=== PATIENT | female | born 1965 | race Caucasian/White ===

== ENCOUNTER 2018-08-07 17:53 | Inpatient (IN) | payer BC, OTHER ==
[2018-08-07] MEDS ORDERED: Alum Hydrox/Mag Hydrox/Simeth 30 ML, Lidocaine 2% 15 ML PO ONE ×2 (18:17)
[2018-08-07] MEDS ORDERED: fentaNYL 100 MCG/2 ML SDV IVPUSH ONE (18:17)
[2018-08-07] MEDS ORDERED: Nitroglycerin 0.4 MG Tab.SL SL PRN (18:17)
[2018-08-07] MEDS ORDERED: Sodium Chloride 0.9% 1,000 ML IV SCH ×2 (18:30→22:00)
--- NOTE | 2018-08-07 18:30 | EDM.PDOC ---
ED HPI GENERAL MEDICAL PROBLEM - General Chief Complaint: Chest Pain Stated Complaint: [facility] Time Seen by Provider: 08/07/18 18:04 Source of Information: Reports: Patient History Limitations: Reports: No Limitations - History of Present Illness INITIAL COMMENTS - FREE TEXT/NARRATIVE: Patient is a 52-year-old female presents ED complaining of left lateral chest pain that radiates into her jaw with some faint numbness and tingling to her fourth and fifth finger of the left hand. States this started yesterday upon awakening. Continued throughout the course the day on and off. Today at approximately 1500 hrs. the pain came back while sitting at her desk. Pain became quite severe in nature. She called her boyfriend and was transported her to the local EMS and thus transported here for further evaluation. She had taken two 325mg ASA tabs at approximately 1630. During transport patient received 10 mg of morphine, 4 mg Zofran, and 1 nitroglycerin with some relief. She has no prior history of pain as such. Currently pain to the jaw and chest is rated a 4 out of 10. She states she has been under a lot more stress with her health issues, family situation, and work. She does smoke approximately 1.5 packs per day. Alcohol use is seldom. No recreational drug use. She does carry a history of TIA in 2012. She has history of coronary disease, hypertension, hypercholesteremia, and diabetes. There are no first-degree relatives with heart disease. In addition she denies any fever, chills, abdominal pain, nausea vomiting, diaphoresis, pain to her back, dysuria, bloody stool, pain or swelling to her lower extremities. She has no history of blood clots to her legs or lungs. She has no history of cancer. Of note she is being further worked up for colon polyps that are abnormal. She has continued to lose weight and is excessively fatigued. She is scheduled to see a provider at the [facility] the end of August. Left Chest Pain Score (Numeric/FACES): 5 - Related Data Allergies Allergy/AdvReac Type Severity Reaction Status Date / Time No Known Allergies Allergy Verified 08/07/18 17:59 Home Meds: Home Meds . [No Known Home Meds] 08/07/18 [History] Past Medical History Gastrointestinal History: Reports: Colon Polyp [employer] WORK[employer] History: Reports: Other (See Below) Other [employer] WORKER History: LEEP Neurological History: Reports: TIA Psychiatric History: Reports: Anxiety, Depression - Past Surgical History GI Surgical History: Reports: Colonoscopy, EGD, Polypectomy Social & Family History - Tobacco Use Smoking Status *Q: Current Every Day Smoker Years of Tobacco use: 35 Packs/Tins Daily: 1.5 - Caffeine Use Caffeine Use: Reports: Coffee - Recreational Drug Use Recreational Drug Use: No ED ROS GENERAL - Review of Systems Review Of Systems: ROS reveals no pertinent complaints other than HPI. ED EXAM, GENERAL - Physical Exam Exam: See Below Exam Limited By: No Limitations General Appearance: Alert, WD/WN, No Apparent Distress Eye Exam: Bilateral Eye: Normal Inspection Ears: Hearing Grossly Normal Nose: Normal Inspection Throat/Mouth: Normal Inspection, Normal Oropharynx, Normal Voice, No Airway Compromise Head: Atraumatic, Normocephalic Neck: Normal Inspection, Supple, Non-Tender, Full Range of Motion. No: Lymphadenopathy (L), Lymphadenopathy (R) Respiratory/Chest: No Respiratory Distress, Lungs Clear, Normal Breath Sounds, No Accessory Muscle Use, Other (mild tenderness to the midclavicular line just above the nipple. No swelling, redness, bony abnormalities, rashes present.) Cardiovascular: Normal Peripheral Pulses, Regular Rate, Rhythm, No JVD, No Murmur, No Rub Peripheral Pulses: 2+: Radial (L), Radial (R) GI/Abdominal: Normal Bowel Sounds, Soft, Non-Tender, No Organomegaly, No Distention Back Exam: Normal Inspection Extremities: Normal Inspection, Normal Range of Motion, Non-Tender, No Pedal Edema, Normal Capillary Refill Neurological: Alert, Oriented, CN II-XII Intact, Normal Cognition, No Motor/ Sensory Deficits Psychiatric: Normal Affect, Normal Mood Skin Exam: Warm, Dry, Intact, Normal Color, No Rash Course - Vital Signs Last Recorded V/S: Last Vital Signs Temp 97.2 F 08/07/18 18:00 Pulse 60 08/07/18 18:00 Resp 20 08/07/18 18:00 BP 105/76 08/07/18 18:38 Pulse Ox 95 08/07/18 18:00 - Orders/Labs/Meds Orders: Active Orders 24 hr Category Date Time Status Patient Status [ADT] Routine ADT 08/07/18 22:19 Active EKG 12 Lead [EKG Documentation Completion] [RC] STAT Care 08/07/18 18:00 Active CXR [Chest 1V Frontal] [CR] Stat Exams 08/07/18 18:32 Taken CULTURE BLOOD [BC] Stat Lab 08/07/18 21:43 Received CULTURE BLOOD [BC] Stat Lab 08/07/18 21:53 Received LACTIC ACID [CHEM] Stat Lab 08/07/18 21:43 Received MYCOPLASMA PNEUMONIAE IGM AB [CHEM] Stat Lab 08/07/18 18:10 Received STREP PNEUMONIAE ANTIGEN [MREF] Stat Lab 08/07/18 21:29 Ordered UA W/MICROSCOPIC [URIN] Stat Lab 08/07/18 18:25 Ordered Levofloxacin/Dextrose 5%-Water [Levaquin in D5W 750 MG/ Med 08/07/18 21:29 Active 150 ML] 750 mg Premix Bag 1 bag IV ONETIME Nitroglycerin [Nitrostat] Med 08/07/18 18:17 Active 0.4 mg SL Q5M PRN Sodium Chloride 0.9% [Normal Saline] 1,000 ml Med 08/07/18 18:30 Active IV ASDIRECTED Sodium Chloride 0.9% [Normal Saline] 1,000 ml Med 08/07/18 22:00 Active IV ASDIRECTED Sodium Chloride 0.9% [Normal Saline] 100 ml Med 08/07/18 20:45 Active IV ASDIRECTED Sodium Chloride 0.9% [Saline Flush] Med 08/07/18 20:40 Active 10 ml FLUSH ONETIME PRN Blood Culture x2 Reflex Set [OM.PC] Stat Oth 08/07/18 21:26 Ordered Medication Orders Sodium Chloride (Normal Saline) 1,000 mls @ 150 mls/hr IV ASDIRECTED [facility] Last Admin: 08/07/18 18:28 Dose: 150 mls/hr Sodium Chloride (Normal Saline) 100 mls @ 80 mls/hr IV ASDIRECTED [facility] Last Admin: 08/07/18 20:58 Dose: 80 mls/hr Levofloxacin/Dextrose 750 mg/ (Premix) 150 mls @ 100 mls/hr IV ONETIME ONE Stop: 08/07/18 22:58 Last Admin: 08/07/18 21:36 Dose: 100 mls/hr Sodium Chloride (Normal Saline) 1,000 mls @ 150 mls/hr IV ASDIRECTED [facility] Nitroglycerin (Nitrostat) 0.4 mg SL Q5M PRN PRN Reason: Chest Pain Last Admin: 08/07/18 18:38 Dose: 0.4 mg Sodium Chloride (Saline Flush) 10 ml FLUSH ONETIME PRN PRN Reason: KEEP VEIN OPEN Last Admin: 08/07/18 20:58 Dose: 10 ml Labs: Laboratory Tests 08/07/18 08/07/18 08/07/18 Range/Units 18:10 18:10 18:10 WBC 12.99 H (3.98-10.04) K/mm3 RBC 4.62 (3.98-5.22) M/mm3 Hgb 15.2 (11.2-15.7) gm/L Hct 44.7 (34.1-44.9) % MCV 96.8 H (79.4-94.8) fl MCH 32.9 H (25.6-32.2) pg MCHC 34.0 (32.2-35.5) g/dl RDW Std Deviation 48.1 H (36.4-46.3) fL Plt Count 274 (182-369) K/mm3 MPV 10.5 (9.4-12.3) fl Neutrophils % (Manual) 72 H (40-60) % Band Neutrophils % 0 (0-10) % Lymphocytes % (Manual) 22 (20-40) % Atypical Lymphs % 0 % Monocytes % (Manual) 5 (2-10) % Eosinophils % (Manual) 0 L (0.7-5.8) % Basophils % (Manual) 1 (0.1-1.2) Platelet Estimate Adequate Plt Morphology Comment Normal RBC Morph Comment Normal PT (9.5-12.1) SECONDS INR APTT (24-31) SECONDS D-Dimer, Quantitative 0.89 H (0.19-0.50) mg/L Sodium 139 (136-145) mEq/L Potassium 4.1 (3.5-5.1) mEq/L Chloride 105 (98-107) mEq/L Carbon Dioxide 26 (21-32) mEq/L Anion Gap 12.1 (5-15) BUN 11 (7-18) mg/dL Creatinine 0.6 (0.55-1.02) mg/dL Est Cr Clr Drug Dosing 93.73 mL/min Estimated GFR (MDRD) > 60 (>60) mL/min BUN/Creatinine Ratio 18.3 H (14-18) Glucose 108 H (74-106) mg/dL Calcium 8.2 L (8.5-10.1) mg/dL Total Bilirubin 0.2 (0.2-1.0) mg/dL AST 14 L (15-37) U/L ALT 14 (14-59) U/L Alkaline Phosphatase 70 (46-116) U/L Troponin I < 0.017 (0.00-0.056) ng/mL C-Reactive Protein 0.5 (<1.0) mg/dL Total Protein 6.7 (6.4-8.2) g/dl Albumin 3.3 L (3.4-5.0) g/dl Globulin 3.4 gm/dL Albumin/Globulin Ratio 1.0 (1-2) Free T4 1.17 (0.76-1.46) ng/dL TSH 3rd Generation 2.368 (0.358-3.74) uIU/mL 08/07/18 08/07/18 08/07/18 Range/Units 18:10 19:43 21:25 WBC (3.98-10.04) K/mm3 RBC (3.98-5.22) M/mm3 Hgb (11.2-15.7) gm/L Hct (34.1-44.9) % MCV (79.4-94.8) fl MCH (25.6-32.2) pg MCHC (32.2-35.5) g/dl RDW Std Deviation (36.4-46.3) fL Plt Count (182-369) K/mm3 MPV (9.4-12.3) fl Neutrophils % (Manual) (40-60) % Band Neutrophils % (0-10) % Lymphocytes % (Manual) (20-40) % Atypical Lymphs % % Monocytes % (Manual) (2-10) % Eosinophils % (Manual) (0.7-5.8) % Basophils % (Manual) (0.1-1.2) Platelet Estimate Plt Morphology Comment RBC Morph Comment PT 10.0 (9.5-12.1) SECONDS INR < 0.93 APTT 29 (24-31) SECONDS D-Dimer, Quantitative (0.19-0.50) mg/L Sodium (136-145) mEq/L Potassium (3.5-5.1) mEq/L Chloride (98-107) mEq/L Carbon Dioxide (21-32) mEq/L Anion Gap (5-15) BUN (7-18) mg/dL Creatinine (0.55-1.02) mg/dL Est Cr Clr Drug Dosing mL/min Estimated GFR (MDRD) (>60) mL/min BUN/Creatinine Ratio (14-18) Glucose (74-106) mg/dL Calcium (8.5-10.1) mg/dL Total Bilirubin (0.2-1.0) mg/dL AST (15-37) U/L ALT (14-59) U/L Alkaline Phosphatase (46-116) U/L Troponin I < 0.017 < 0.017 (0.00-0.056) ng/mL C-Reactive Protein (<1.0) mg/dL Total Protein (6.4-8.2) g/dl Albumin (3.4-5.0) g/dl Globulin gm/dL Albumin/Globulin Ratio (1-2) Free T4 (0.76-1.46) ng/dL TSH 3rd Generation (0.358-3.74) uIU/mL Meds: Medications Generic Name Dose Route Start Last Admin Trade Name Freq PRN Reason Stop Dose Admin Sodium Chloride 1,000 mls @ 150 mls/hr 08/07/18 18:30 08/07/18 18:28 Normal Saline IV 150 mls/hr ASDIRECTED XOCHILT Administration Sodium Chloride 100 mls @ 80 mls/hr 08/07/18 20:45 08/07/18 20:58 Normal Saline IV 80 mls/hr ASDIRECTED XOCHILT Administration Levofloxacin/Dextrose 750 mg/ 150 mls @ 100 mls/hr 08/07/18 21:29 08/07/18 21 :36 Premix IV 08/07/18 22:58 100 mls/hr ONETIME ONE Administration Sodium Chloride 1,000 mls @ 150 mls/hr 08/07/18 22:00 Normal Saline IV ASDIRECTED XOCHILT Nitroglycerin 0.4 mg 08/07/18 18:17 08/07/18 18:38 Nitrostat SL 0.4 mg Q5M PRN Administration Chest Pain Sodium Chloride 10 ml 08/07/18 20:40 08/07/18 20:58 Saline Flush FLUSH 10 ml ONETIME PRN Administration KEEP VEIN OPEN Discontinued Medications Generic Name Dose Route Start Last Admin Trade Name Ortiz PRN Reason Stop Dose Admin Al Hydroxide/Mg Hydroxide 30 0 ml 08/07/18 18:17 08/07/18 18:27 ml/ Lidocaine HCl 15 ml PO 08/07/18 18:18 45 ml ONETIME ONE Administration Fentanyl 50 mcg 08/07/18 18:17 08/07/18 18:30 Sublimaze IVPUSH 08/07/18 18:18 50 mcg ONETIME ONE Administration Sodium Chloride 1,000 mls @ 999 mls/hr 08/07/18 21:45 Normal Saline IV 08/07/18 22:45 ONETIME ONE Iopamidol 100 ml 08/07/18 20:40 08/07/18 20:58 Isovue-370 (76%) IVPUSH 08/07/18 20:41 100 ml ONETIME ONE Administration - Re-Assessments/Exams Free Text/Narrative Re-Assessment/Exam: Pain is currently a 4 out of 10 sharp to the chest worse with palpation and taking a deep breath. Jaw pain as a dull ache. No pain radiates into her back or into her abdomen. No pain radiating into her arm. Differential diagnosis: myocardial infarction, spontaneous pneumothorax, PE, muscloskeletal pain, anxiety, and GERD. Initial labs and studies will include: CBC, chem 14, CRP, d-dimer, coag studies , TSH, troponin, UA, chest x-ray one view, and EKG. I will order a GI cocktail, nitroglycerin 3 sublingual with parameters, and fentanyl 50 g IV. EKG: Sinus rhythm rate of 55, RSR V1 and V2 normal variant, QT is minimally prolonged at [address] changes noted. Chest x-ray left-sided pleural effusion with no obvious focal consolidation. No pneumothorax present. No cardiomegaly. No widening mediastinum. Reviewed with Dr. Antonio. Final Interpretation is pending. Labs reviewed: CBC was essentially normal. Troponin normal. TSH normal. White blood cell count mildly elevated. Hemoglobin normal. Platelet count 274. D- dimer elevated 0.89. CTA of the chest has been ordered. 2034 reassessment, patient's vital signs are stable. She continues to have some mild discomfort to the left chest and into her neck and jaw. She states the pain in the jaw has radiated into her neck. She has some pain with swallowing. Pain with palpation of the neck along the trachea. No swelling to the posterior pharynx. No erythema. No tonsillar exudates. No uvular deviation. No voice change. Pain to the chest left lateral increased with palpation and taking deep breath. She did have some relief with taking the above therapies. 2nd Troponin was obtained to early in error. 2nd troponin has been ordered 3 hrs from original blood draw. 08/07/18 21:08 Per nursing staff patient got up and walked to the bathroom without oxygen. O2 sat 77% on room air. [address] Christine. She has agreed to admit the patient to observation with telemetry if no significant findings noted on CTA of the chest. Plan would be to obtain a stress test in the a.m. 2117 CTA Chest Impression: 1. Small to moderate size left-sided pleural effusion with parenchymal density within the left base raising the possibility of pneumonia. Groundglass appearance within the left upper lung adjacent to the major fissure possibly due to additional pneumonia. Please correlate if patient has infectious symptoms. 2. Mild right basilar atelectasis is seen. 3. Slightly prominent lymph node within the lateral AP window measuring 2.7 cm. this most likely is enlarged on previous inflammatory basis although follow- up chest CT recommended in 6 months which should include contrast. This follow- up study would occur in January,. 4. No findings of pulmonary embolism. Blood cultures, lactic acid, and Levaquin 750 mg IV ordered. 2124 Discussed results of CTA of the chest with Dr. Christine. Recommended transfer to [place] with no clear etiology to cause of the left-sided pleural effusion concerning for cancer with history of weight loss and fatigue. I have spoken with the patient and she requests transfer to [facility]. Spoke to [facility] one call and [facility] admission coordinator. Both hospitals do not have any openings for this type of patient. I have spoken with Dr. Christine and she has agreed to admit the patient to the ED. Patient agrees to be admitted to the hospital here in [place]. Departure - Departure Time of Disposition: 22:06 Disposition: Admitted As Inpatient 67 Condition: Fair Clinical Impression: Hypoxia, Pleural effusion Pneumonia Qualifiers: Pneumonia type: due to unspecified organism Laterality: left Lung location: unspecified part of lung Qualified Code(s): J18.9 - Pneumonia, unspecified organism - My Orders Last 24 Hours: My Active Orders 08/07/18 18:00 EKG 12 Lead [EKG Documentation Completion] [RC] STAT 08/07/18 18:10 MYCOPLASMA PNEUMONIAE IGM AB [CHEM] Stat 08/07/18 18:17 Nitroglycerin [Nitrostat] 0.4 mg SL Q5M PRN 08/07/18 18:25 UA W/MICROSCOPIC [URIN] Stat 08/07/18 18:30 Sodium Chloride 0.9% [Normal Saline] 1,000 ml IV ASDIRECTED 08/07/18 18:32 CXR [Chest 1V Frontal] [CR] Stat 08/07/18 20:40 Sodium Chloride 0.9% [Saline Flush] 10 ml FLUSH ONETIME PRN 08/07/18 20:45 Sodium Chloride 0.9% [Normal Saline] 100 ml IV ASDIRECTED 08/07/18 21:26 Blood Culture x2 Reflex Set [OM.PC] Stat 08/07/18 21:29 STREP PNEUMONIAE ANTIGEN [MREF] Stat Levofloxacin/Dextrose 5%-Water [Levaquin in D5W 750 MG/150 ML] 750 mg Premix Bag 1 bag IV ONETIME 08/07/18 21:43 CULTURE BLOOD [BC] Stat LACTIC ACID [CHEM] Stat 08/07/18 21:53 CULTURE BLOOD [BC] Stat 08/07/18 22:00 Sodium Chloride 0.9% [Normal Saline] 1,000 ml IV ASDIRECTED 08/07/18 22:19 Patient Status [ADT] Routine - Assessment/Plan Last 24 Hours: My Active Orders 08/07/18 18:00 EKG 12 Lead [EKG Documentation Completion] [RC] STAT 08/07/18 18:10 MYCOPLASMA PNEUMONIAE IGM AB [CHEM] Stat 08/07/18 18:17 Nitroglycerin [Nitrostat] 0.4 mg SL Q5M PRN 08/07/18 18:25 UA W/MICROSCOPIC [URIN] Stat 08/07/18 18:30 Sodium Chloride 0.9% [Normal Saline] 1,000 ml IV ASDIRECTED 08/07/18 18:32 CXR [Chest 1V Frontal] [CR] Stat 08/07/18 20:40 Sodium Chloride 0.9% [Saline Flush] 10 ml FLUSH ONETIME PRN 08/07/18 20:45 Sodium Chloride 0.9% [Normal Saline] 100 ml IV ASDIRECTED 08/07/18 21:26 Blood Culture x2 Reflex Set [OM.PC] Stat 08/07/18 21:29 STREP PNEUMONIAE ANTIGEN [MREF] Stat Levofloxacin/Dextrose 5%-Water [Levaquin in D5W 750 MG/150 ML] 750 mg Premix Bag 1 bag IV ONETIME 08/07/18 21:43 CULTURE BLOOD [BC] Stat LACTIC ACID [CHEM] Stat 08/07/18 21:53 CULTURE BLOOD [BC] Stat 08/07/18 22:00 Sodium Chloride 0.9% [Normal Saline] 1,000 ml IV ASDIRECTED 08/07/18 22:19 Patient Status [ADT] Routine
[2018-08-07] MEDS ORDERED: Sodium Chloride 0.9% 10 ML Syringe FLUSH PRN (20:40)
[2018-08-07] MEDS ORDERED: Iopamidol 755 Mg/ML 100 ML Bottle IVPUSH ONE (20:40)
[2018-08-07] MEDS ORDERED: Sodium Chloride 0.9% 100 ML IV SCH (20:45)
--- NOTE | 2018-08-07 21:21 | CT ---
CT chest Technique: Multiple axial sections through the chest were obtained. Study has been performed as a pulmonary angiogram protocol. Comparison: Prior chest x-ray performed earlier on the same day (6:50 PM). Findings: Pulmonary arteries are well-opacified. No filling defects are seen to indicate pulmonary embolism. Aorta shows no aneurysm. Soft tissue fullness is noted within the AP window believed to represent a mildly enlarged lymph node at 2.7 cm. No pericardial thickening is seen. Small to moderate size left-sided pleural effusion is noted. Patchy increased density within both lung bases. Right base findings may represent atelectasis and left lung findings may represent slight area of pneumonia if patient has infectious symptoms. Hazy groundglass appearance is noted within the left upper lung adjacent to the major fissure. Small portion of the visualized upper abdominal structures are unremarkable. Minimal coronary artery calcification is seen. No axillary adenopathy is seen. Impression: 1. Small to moderate size left-sided pleural effusion with parenchymal density within the left base raising the possibility of pneumonia. Groundglass appearance within the left upper lung adjacent to the major fissure possibly due to additional pneumonia. Please correlate if patient has infectious symptoms. 2. Mild right basilar atelectasis is seen. 3. Slightly prominent lymph node within the lateral AP window measuring 2.7 cm. this most likely is enlarged on previous inflammatory basis although follow-up chest CT recommended in 6 months which should include contrast. This follow-up study would occur in January,. 4. No findings of pulmonary embolism. Diagnostic code #9
[2018-08-07] MEDS ORDERED: Levofloxacin/Dextrose 5%-Water 750 MG in Premix Bag 1 BAG IV ONE (21:29)
[2018-08-07] MEDS ORDERED: Sodium Chloride 0.9% 1,000 ML IV ONE (21:45)
[2018-08-07] MEDS ORDERED: Albuterol 0.083% 2.5 MG/3 ML Neb Soln NEB PRN (23:51)
[2018-08-07] MEDS: Sodium Chloride 0.9% 1,000 ML IV SCH (23:52)
[2018-08-07] MEDS ORDERED: Acetaminophen 325 MG Tab PO PRN (23:53)
[2018-08-07] MEDS ORDERED: Temazepam 7.5 MG Cap PO PRN (23:56)
[2018-08-07] MEDS ORDERED: Benzonatate 100 MG Cap PO PRN (23:56)
[2018-08-07] MEDS ORDERED: guaiFENesin 600 MG Tab.ER PO PRN (23:57)
[2018-08-08] MEDS: Azithromycin 500 MG in Sodium Chloride 0.9% 250 ML IV SCH (00:44)
--- NOTE | 2018-08-08 06:04 | CR ---
Chest: Portable view of the chest was obtained. Comparison: No prior chest x-ray. Heart is slightly enlarged. Increased density within the left base most likely due to combination of pneumonia and small pleural effusion. Lungs otherwise are clear. Bony structures are grossly intact. Impression: 1. Probable left basilar pneumonia and small left pleural effusion. 2. Slightly enlarged heart. Diagnostic code #3
[2018-08-08] MEDS: Sodium Chloride 0.9% 1,000 ML IV SCH ×2 (06:19→15:11)
--- NOTE | 2018-08-08 06:37 | PCM.HP ---
H&P History of Present Illness - General Date of Service: 08/08/18 Admit Problem/Dx: Admission Diagnosis/Problem Admission Diagnosis/Problem Pneumonia Source of Information: Patient, Old Records, Provider, RN, RN Notes Reviewed History Limitations: Reports: No Limitations - History of Present Illness Initial Comments - Free Text/Narative: Amarilys Cabrales is a 52yo female who presented to ED yesterday evening with lateral chest pain that radiates into her jaw along with faint numbness and tingling in her fourth and fifth finger of her left hand. She reports it started on 08/06/18 when she woke up and continued throughout the day on and off. On 08/07/18 at approximately 1500 hrs. the pain came back when she was sitting at her desk and was quite severe in nature. She called her boyfriend about who brought her to the [facility] and she was transported to our emergency room. She had taken two 325 mg ASA tabs around 4:30 and received 4 mg of morphine, 4 mg Zofran, and 1 after glycerin spray with some relief enroute. No prior history of similar pain. In the ED she reported her jaw pain to be 4 out of 10. Reports she has been under a lot of stress with health issues, family situation, and work. She is a daily smoker of 1.5 packs per day and rarely uses alcohol. Denies recreational drug use. She reportedly had a prior TIA in 2012. No history of coronary artery disease, hypertension, hypercholesterolemia, and diabetes. No first-degree relatives with heart disease. Denies any fever, chills, abdominal pain, nausea, vomiting, diaphoresis, pain to her back, dysuria, bloody stool, pain or swelling in her lower extremities. No history of DVT or PE. No history of cancer. She reportedly has an abnormal colon polyps and has continued to lose weight and is excessively fatigued. She is scheduled to see a provider at [facility] near the end of August. In the ED temp was 97.2. Pulse 60. Respirations 20. Blood pressure 105/76. Pulse ox 95%. 30 mL slightly elevated at 12.99. Hemoglobin 15.2. Hematocrit 44.7. She is macrocytic. Pulses are good at 274,000. Neutrophils were elevated at 72%. There is no bandemia. D-dimer 0.89. Sodium is 139. Potassium 4.1. Chloride 105. Carbon dioxide 26. Anion gap 12.1. BUN is 11. Creatinine 0.6. EGFR greater than 60. Glucose 108. Calcium 8.2. Total bilirubin 0.2. AST is 14, ALT 14, alkaline phosphatase 70. Troponin is negative at less than 0.017 for 3 total lab draws. CRP is 0.5. Protein is 6.7. Albumin is 3.3. Free T4 is 1.17. TSH is 2.368. PT is 10. INR is less than 0.93. APTT is 29. She is given a GI cocktail and nitroglycerin and 50 g IV fentanyl. Twelve-lead EKG is obtained showing a rate of 55 bpm. RSR is noted in V1 and V2 normal variant. QT is minimally prolonged. No acute ST changes are noted. Chest x-ray is obtained and interpreted by Dr. Hale as 1. Probable left basilar pneumonia and small left pleural effusion. 2. Slightly enlarged heart." CTA of the chest is obtained and interpreted by Dr. Hale as 1. Small to moderate size left-sided pleural effusion with parenchymal density within the left base raising the possibility of pneumonia. Groundglass appearance of the left upper lung adjacent to the major fissure possibly due to additional pneumonia. Please correlate if patient has infectious symptoms. 2. Mild right basilar atelectasis seen. 3. Slightly prominent lymph node within the lateral AP window measuring 2.7 cm. This most likely is enlarged on previous inflammatory basis although follow-up chest CT recommended in 6 months which should include contrast. This follow-up study would occur in January 2019. 4. No findings of pulmonary embolism." Lactic acid is later obtained and found to be 0.7. UA is negative although trace lysed occult blood is noted. Levaquin 750 mg IV is initiated along with saline hospitalist services contacted for possible admission and it is recommended patient be transferred to [place]. Both [facility] and [facility] contacted and neither has bed availability. Patient will therefore be admitted here. She carries a history of TIA in 2012, anxiety, depression prior LEEP, GERD, recurrent PNA, recurrent bronchitis, multiple colon polyps, chronic diarrhea. She is a 1.5 pack a day daily smoker. She is a full code. She does not have a PCP. Left Chest Pain Score (Numeric/FACES): 5 - Related Data Allergies/Adverse Reactions: Allergies Allergy/AdvReac Type Severity Reaction Status Date / Time No Known Allergies Allergy Verified 08/07/18 22:53 Home Medications: Home Meds [facility] Multivitamin Packet 1 packet PO DAILY 08/07/18 [History] Potassium 1 tab PO DAILY 08/07/18 [History] Past Medical History HEENT History: Reports: Other (See Below) Other HEENT History: broken nose in college Cardiovascular History: Reports: None Respiratory History: Reports: Bronchitis, Recurrent, Pneumonia, Recurrent Gastrointestinal History: Reports: Chronic Diarrhea, Colon Polyp, GERD Genitourinary History: Reports: None 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: Reports: Other (See Below) Other OB/BYN History: LEEP Musculoskeletal History: Reports: Arthritis Neurological History: Reports: TIA Other Neuro History: TIA in 2012 Psychiatric History: Reports: Anxiety, Depression - Past Surgical History HEENT Surgical History: Reports: None Cardiovascular Surgical History: Reports: None Respiratory Surgical History: Reports: None GI Surgical History: Reports: Colonoscopy, EGD, Polypectomy Female Surgical History: Reports: LEEP Neurological Surgical History: Reports: None Musculoskeletal Surgical History: Reports: Carpal Tunnel Social & Family History - Family History Oncologic: Reports: Breast, Lung - Tobacco Use Smoking Status *Q: Current Every Day Smoker Years of Tobacco use: 35 Packs/Tins Daily: 1.5 Tobacco Use Comment: Patient states that she has tried multiple ways to quit but hasn't been able. - Caffeine Use Caffeine Use: Reports: Coffee - Recreational Drug Use Recreational Drug Use: No H&P Review of Systems - Review of Systems: Review Of Systems: See Below General: Reports: Malaise, Weakness, Fatigue, Weight Loss. Denies: Fever, Chills, Decreased Appetite HEENT: Reports: No Symptoms, Sore Throat. Denies: Headaches, Post Nasal Drip Pulmonary: Reports: Shortness of Breath, Pleuritic Chest Pain, Cough, Sputum. Denies: Wheezing, Hemoptysis Cardiovascular: Reports: Chest Pain, Dyspnea on Exertion. Denies: Palpitations , Edema, Lightheadedness, Blood Pressure Problem Gastrointestinal: Reports: Diarrhea (Chronic ). Denies: Abdominal Pain, Constipation, Nausea, Vomiting Genitourinary: Reports: No Symptoms. Denies: Dysuria, Frequency, Pain Musculoskeletal: Reports: No Symptoms Skin: Reports: No Symptoms Psychiatric: Reports: No Symptoms Neurological: Reports: No Symptoms Hematologic/Lymphatic: Reports: No Symptoms Immunologic: Reports: No Symptoms Exam - Exam Exam: See Below - Vital Signs Vital Signs: Last Vital Signs Temp 98.6 F 08/08/18 02:18 Pulse 87 08/08/18 02:18 Resp 16 08/08/18 02:18 BP 94/53 L 08/08/18 02:18 Pulse Ox 90 L 08/08/18 02:18 Weight: 134 lb 7 oz - Exam Quality Assessment: Supplemental Oxygen, DVT Prophylaxis General: Alert, Oriented, Cooperative. No: Mild Distress HEENT: Conjunctiva Clear, EACs Clear, EOMI, Hearing Intact, Mucosa Moist & [place] , Nares Patent, Normal Nasal Septum, Posterior Pharynx Clear Neck: Supple, Trachea Midline, Full Range of Motion. No: Lymphadenopathy Lungs: Clear to Auscultation, Normal Respiratory Effort, Decreased Breath Sounds Cardiovascular: Regular Rate, Regular Rhythm GI/Abdominal Exam: Normal Bowel Sounds, Soft, Non-Tender, No Distention, No Abnormal Bruit, No Mass (Female) Exam: Deferred Rectal (Female) Exam: Deferred Back Exam: Normal Inspection, Full Range of Motion Extremities: Normal Inspection, Normal Range of Motion, Non-Tender, No Pedal Edema, Normal Capillary Refill Peripheral Pulses: 2+: Radial (L), Radial (R), Dorsalis Pedis (L), Dorsalis Pedis (R) Skin: Warm, Dry, Intact Neurological: Cranial Nerves Intact (grossly ) Neuro Extensive - Mental Status: Alert, Oriented x3, Normal Mood/Affect, Normal Cognition - Patient Data Lab Results Last 24 hrs: Laboratory Results - last 24 hr 08/07/18 08/07/18 08/07/18 Range/Units 18:10 18:10 18:10 WBC 12.99 H (3.98-10.04) K/mm3 RBC 4.62 (3.98-5.22) M/mm3 Hgb 15.2 (11.2-15.7) gm/L Hct 44.7 (34.1-44.9) % MCV 96.8 H (79.4-94.8) fl MCH 32.9 H (25.6-32.2) pg MCHC 34.0 (32.2-35.5) g/dl RDW Std Deviation 48.1 H (36.4-46.3) fL Plt Count 274 (182-369) K/mm3 MPV 10.5 (9.4-12.3) fl Neutrophils % (Manual) 72 H (40-60) % Band Neutrophils % 0 (0-10) % Lymphocytes % (Manual) 22 (20-40) % Atypical Lymphs % 0 % Monocytes % (Manual) 5 (2-10) % Eosinophils % (Manual) 0 L (0.7-5.8) % Basophils % (Manual) 1 (0.1-1.2) Platelet Estimate Adequate Plt Morphology Comment Normal Poikilocytosis Anisocytosis RBC Morph Comment Normal PT (9.5-12.1) SECONDS INR APTT (24-31) SECONDS D-Dimer, Quantitative 0.89 H (0.19-0.50) mg/L Sodium 139 (136-145) mEq/L Potassium 4.1 (3.5-5.1) mEq/L Chloride 105 (98-107) mEq/L Carbon Dioxide 26 (21-32) mEq/L Anion Gap 12.1 (5-15) BUN 11 (7-18) mg/dL Creatinine 0.6 (0.55-1.02) mg/dL Est Cr Clr Drug Dosing 93.73 mL/min Estimated GFR (MDRD) > 60 (>60) mL/min BUN/Creatinine Ratio 18.3 H (14-18) Glucose 108 H (74-106) mg/dL Lactic Acid (0.4-2.0) mmol/L Calcium 8.2 L (8.5-10.1) mg/dL Magnesium (1.8-2.4) mg/dl Total Bilirubin 0.2 (0.2-1.0) mg/dL AST 14 L (15-37) U/L ALT 14 (14-59) U/L Alkaline Phosphatase 70 (46-116) U/L Troponin I < 0.017 (0.00-0.056) ng/mL C-Reactive Protein 0.5 (<1.0) mg/dL Total Protein 6.7 (6.4-8.2) g/dl Albumin 3.3 L (3.4-5.0) g/dl Globulin 3.4 gm/dL Albumin/Globulin Ratio 1.0 (1-2) Free T4 1.17 (0.76-1.46) ng/dL TSH 3rd Generation 2.368 (0.358-3.74) uIU/mL Urine Color (Yellow) Urine Appearance (Clear) Urine pH (5.0-8.0) Ur Specific [place] (1.005-1.030) Urine Protein (Negative) Urine Glucose (UA) (Negative) Urine Ketones (Negative) Urine Occult Blood (Negative) Urine Nitrite (Negative) Urine Bilirubin (Negative) Urine Urobilinogen (0.2-1.0) Ur Leukocyte Esterase (Negative) Urine RBC (0-5) /hpf Urine WBC (0-5) /hpf Ur Epithelial Cells (0-5) /hpf Urine Bacteria (FEW) /hpf Urine Mucus (FEW) /hpf Mycoplasma pneumon IgM (NEGATIVE) 08/07/18 08/07/18 08/07/18 Range/Units 18:10 18:10 19:43 WBC (3.98-10.04) K/mm3 RBC (3.98-5.22) M/mm3 Hgb (11.2-15.7) gm/L Hct (34.1-44.9) % MCV (79.4-94.8) fl MCH (25.6-32.2) pg MCHC (32.2-35.5) g/dl RDW Std Deviation (36.4-46.3) fL Plt Count (182-369) K/mm3 MPV (9.4-12.3) fl Neutrophils % (Manual) (40-60) % Band Neutrophils % (0-10) % Lymphocytes % (Manual) (20-40) % Atypical Lymphs % % Monocytes % (Manual) (2-10) % Eosinophils % (Manual) (0.7-5.8) % Basophils % (Manual) (0.1-1.2) Platelet Estimate Plt Morphology Comment Poikilocytosis Anisocytosis RBC Morph Comment PT 10.0 (9.5-12.1) SECONDS INR < 0.93 APTT 29 (24-31) SECONDS D-Dimer, Quantitative (0.19-0.50) mg/L Sodium (136-145) mEq/L Potassium (3.5-5.1) mEq/L Chloride (98-107) mEq/L Carbon Dioxide (21-32) mEq/L Anion Gap (5-15) BUN (7-18) mg/dL Creatinine (0.55-1.02) mg/dL Est Cr Clr Drug Dosing mL/min Estimated GFR (MDRD) (>60) mL/min BUN/Creatinine Ratio (14-18) Glucose (74-106) mg/dL Lactic Acid (0.4-2.0) mmol/L Calcium (8.5-10.1) mg/dL Magnesium (1.8-2.4) mg/dl Total Bilirubin (0.2-1.0) mg/dL AST (15-37) U/L ALT (14-59) U/L Alkaline Phosphatase (46-116) U/L Troponin I < 0.017 (0.00-0.056) ng/mL C-Reactive Protein (<1.0) mg/dL Total Protein (6.4-8.2) g/dl Albumin (3.4-5.0) g/dl Globulin gm/dL Albumin/Globulin Ratio (1-2) Free T4 (0.76-1.46) ng/dL TSH 3rd Generation (0.358-3.74) uIU/mL Urine Color (Yellow) Urine Appearance (Clear) Urine pH (5.0-8.0) Ur Specific [place] (1.005-1.030) Urine Protein (Negative) Urine Glucose (UA) (Negative) Urine Ketones (Negative) Urine Occult Blood (Negative) Urine Nitrite (Negative) Urine Bilirubin (Negative) Urine Urobilinogen (0.2-1.0) Ur Leukocyte Esterase (Negative) Urine RBC (0-5) /hpf Urine WBC (0-5) /hpf Ur Epithelial Cells (0-5) /hpf Urine Bacteria (FEW) /hpf Urine Mucus (FEW) /hpf Mycoplasma pneumon IgM Positive H (NEGATIVE) 08/07/18 08/07/18 08/07/18 Range/Units 21:25 21:43 23:00 WBC (3.98-10.04) K/mm3 RBC (3.98-5.22) M/mm3 Hgb (11.2-15.7) gm/L Hct (34.1-44.9) % MCV (79.4-94.8) fl MCH (25.6-32.2) pg MCHC (32.2-35.5) g/dl RDW Std Deviation (36.4-46.3) fL Plt Count (182-369) K/mm3 MPV (9.4-12.3) fl Neutrophils % (Manual) (40-60) % Band Neutrophils % (0-10) % Lymphocytes % (Manual) (20-40) % Atypical Lymphs % % Monocytes % (Manual) (2-10) % Eosinophils % (Manual) (0.7-5.8) % Basophils % (Manual) (0.1-1.2) Platelet Estimate Plt Morphology Comment Poikilocytosis Anisocytosis RBC Morph Comment PT (9.5-12.1) SECONDS INR APTT (24-31) SECONDS D-Dimer, Quantitative (0.19-0.50) mg/L Sodium (136-145) mEq/L Potassium (3.5-5.1) mEq/L Chloride (98-107) mEq/L Carbon Dioxide (21-32) mEq/L Anion Gap (5-15) BUN (7-18) mg/dL Creatinine (0.55-1.02) mg/dL Est Cr Clr Drug Dosing mL/min Estimated GFR (MDRD) (>60) mL/min BUN/Creatinine Ratio (14-18) Glucose (74-106) mg/dL Lactic Acid 0.7 (0.4-2.0) mmol/L Calcium (8.5-10.1) mg/dL Magnesium (1.8-2.4) mg/dl Total Bilirubin (0.2-1.0) mg/dL AST (15-37) U/L ALT (14-59) U/L Alkaline Phosphatase (46-116) U/L Troponin I < 0.017 (0.00-0.056) ng/mL C-Reactive Protein (<1.0) mg/dL Total Protein (6.4-8.2) g/dl Albumin (3.4-5.0) g/dl Globulin gm/dL Albumin/Globulin Ratio (1-2) Free T4 (0.76-1.46) ng/dL TSH 3rd Generation (0.358-3.74) uIU/mL Urine Color Yellow (Yellow) Urine Appearance Clear (Clear) Urine pH 7.0 (5.0-8.0) Ur Specific [place] 1.010 (1.005-1.030) Urine Protein Negative (Negative) Urine Glucose (UA) Negative (Negative) Urine Ketones Negative (Negative) Urine Occult Blood Trace-lysed H (Negative) Urine Nitrite Negative (Negative) Urine Bilirubin Negative (Negative) Urine Urobilinogen 0.2 (0.2-1.0) Ur Leukocyte Esterase Negative (Negative) Urine RBC 0-5 (0-5) /hpf Urine WBC 0-5 (0-5) /hpf Ur Epithelial Cells 0-5 (0-5) /hpf Urine Bacteria Rare (FEW) /hpf Urine Mucus Not seen (FEW) /hpf Mycoplasma pneumon IgM (NEGATIVE) 08/08/18 08/08/18 08/08/18 Range/Units 05:30 05:30 05:30 WBC 11.27 H (3.98-10.04) K/mm3 RBC 4.49 (3.98-5.22) M/mm3 Hgb 15.1 (11.2-15.7) gm/L Hct 43.6 (34.1-44.9) % MCV 97.1 H (79.4-94.8) fl MCH 33.6 H (25.6-32.2) pg MCHC 34.6 (32.2-35.5) g/dl RDW Std Deviation 49.0 H (36.4-46.3) fL Plt Count 241 (182-369) K/mm3 MPV 9.9 (9.4-12.3) fl Neutrophils % (Manual) 66 H (40-60) % Band Neutrophils % 0 (0-10) % Lymphocytes % (Manual) 28 (20-40) % Atypical Lymphs % 0 % Monocytes % (Manual) 6 (2-10) % Eosinophils % (Manual) 0 L (0.7-5.8) % Basophils % (Manual) 0 L (0.1-1.2) Platelet Estimate Adequate Plt Morphology Comment Poikilocytosis 1+ slight Anisocytosis 1+ slight RBC Morph Comment Not Reportable PT (9.5-12.1) SECONDS INR APTT (24-31) SECONDS D-Dimer, Quantitative (0.19-0.50) mg/L Sodium 141 (136-145) mEq/L Potassium 4.1 (3.5-5.1) mEq/L Chloride 108 H (98-107) mEq/L Carbon Dioxide 25 (21-32) mEq/L Anion Gap 12.1 (5-15) BUN 7 (7-18) mg/dL Creatinine 0.5 L (0.55-1.02) mg/dL Est Cr Clr Drug Dosing 128.14 mL/min Estimated GFR (MDRD) > 60 (>60) mL/min BUN/Creatinine Ratio 14.0 (14-18) Glucose 99 (74-106) mg/dL Lactic Acid 0.5 (0.4-2.0) mmol/L Calcium 8.1 L (8.5-10.1) mg/dL Magnesium 2.0 (1.8-2.4) mg/dl Total Bilirubin (0.2-1.0) mg/dL AST (15-37) U/L ALT (14-59) U/L Alkaline Phosphatase (46-116) U/L Troponin I (0.00-0.056) ng/mL C-Reactive Protein 3.6 H* (<1.0) mg/dL Total Protein (6.4-8.2) g/dl Albumin (3.4-5.0) g/dl Globulin gm/dL Albumin/Globulin Ratio (1-2) Free T4 (0.76-1.46) ng/dL TSH 3rd Generation (0.358-3.74) uIU/mL Urine Color (Yellow) Urine Appearance (Clear) Urine pH (5.0-8.0) Ur Specific [place] (1.005-1.030) Urine Protein (Negative) Urine Glucose (UA) (Negative) Urine Ketones (Negative) Urine Occult Blood (Negative) Urine Nitrite (Negative) Urine Bilirubin (Negative) Urine Urobilinogen (0.2-1.0) Ur Leukocyte Esterase (Negative) Urine RBC (0-5) /hpf Urine WBC (0-5) /hpf Ur Epithelial Cells (0-5) /hpf Urine Bacteria (FEW) /hpf Urine Mucus (FEW) /hpf Mycoplasma pneumon IgM (NEGATIVE) Result Diagrams: 08/08/18 05:30 08/08/18 05:30 Praveen Results Last 24 hrs: Microbiology 08/07/18 23:54 Influenza Type A Antigen Screen - Final Nasal, Unspecified NEGATIVE INFLUENZA A VIRUS AG Influenza Type B Antigen Screen - Final NEGATIVE INFLUENZA B VIRUS AG - Problem List (1) Mycoplasma pneumonia SNOMED Code(s): 12690669 ICD Code: J15.7 - PNEUMONIA DUE TO MYCOPLASMA PNEUMONIAE Status: Acute Priority: High Current Visit: Yes Qualifiers: Laterality: left Lung location: unspecified part of lung Qualified Code(s ): J15.7 - Pneumonia due to Mycoplasma pneumoniae (2) Hypoxia SNOMED Code(s): 806004871 ICD Code: R09.02 - HYPOXEMIA Status: Acute Priority: High Current Visit : Yes (3) Pleural effusion SNOMED Code(s): 02155800 ICD Code: J90 - PLEURAL EFFUSION, NOT ELSEWHERE CLASSIFIED Status: Acute Priority: Medium Current Visit: Yes (4) Pneumonia SNOMED Code(s): 539147276 ICD Code: J18.9 - PNEUMONIA, UNSPECIFIED ORGANISM Status: Acute Priority : High Current Visit: Yes Qualifiers: Pneumonia type: due to unspecified organism Laterality: left Lung location: unspecified part of lung Qualified Code(s): J18.9 - Pneumonia, unspecified organism (5) Elevated d-dimer SNOMED Code(s): 726700512 ICD Code: R79.89 - OTHER SPECIFIED ABNORMAL FINDINGS OF BLOOD CHEMISTRY Status: Acute Priority: High Current Visit: Yes (6) Chest pain SNOMED Code(s): 63147906 ICD Code: R07.9 - CHEST PAIN, UNSPECIFIED Status: Acute Priority: High Current Visit: Yes Qualifiers: Chest pain type: chest pain on breathing Qualified Code(s): R07.1 - Chest pain on breathing; R07.81 - Pleurodynia (7) Lymph node enlargement SNOMED Code(s): 83792473 ICD Code: R59.9 - ENLARGED LYMPH NODES, UNSPECIFIED Status: Acute Priority: Medium Current Visit: Yes Problem List Initiated/Reviewed/Updated: Yes Orders Last 24hrs: Active Orders 24 hr Category Date Time Status Patient Status [ADT] Routine ADT 08/07/18 22:19 Active Activity as Tolerated [RC] .Routine Care 08/07/18 23:55 Active Influenza Vaccine Charge [RC] .DISCHARGE Care 08/07/18 23:08 Active Oxygen Therapy [RC] ASDIRECTED Care 08/07/18 23:52 Active RT Aerosol Therapy [RC] ASDIRECTED Care 08/07/18 23:46 Active Heart Healthy Diet [DIET] Diet 08/08/18 Breakfast Active CULTURE BLOOD [BC] Stat Lab 08/07/18 21:43 Received CULTURE BLOOD [BC] Stat Lab 08/07/18 21:53 Received RESPIRATORY PANEL Routine Lab 08/07/18 23:50 Received STREP PNEUMONIAE ANTIGEN [MREF] Stat Lab 08/07/18 23:23 Received Acetaminophen [Tylenol] Med 08/07/18 23:53 Active 650 mg PO Q6H PRN Albuterol [Proventil Neb Soln] Med 08/07/18 23:51 Active 2.5 mg NEB Q4HRRT PRN Albuterol/Ipratropium [DuoNeb 3.0-0.5 MG/3 ML] Med 08/08/18 09:00 Active 3 ml NEB QID Azithromycin [Zithromax] 500 mg Med 08/08/18 00:00 Active Sodium Chloride 0.9% [Normal Saline] 250 ml IV Q24H Benzonatate [Tessalon Perles] Med 08/07/18 23:56 Active 100 mg PO TID PRN Enoxaparin [Lovenox] Med 08/08/18 09:00 Active 40 mg SUBCUT DAILY FLU Vacc [id number] 36MOS UP/PF [Fluzone Quad [id number] Med 08/08/18 10:00 Once Syringe] 60 mcg IM .ONCE ONE Nicotine [Habitrol] Med 08/08/18 09:00 Active 21 mg TRDERM DAILY Nitroglycerin [Nitrostat] Med 08/07/18 18:17 Active 0.4 mg SL Q5M PRN Sodium Chloride 0.9% [Normal Saline] 1,000 ml Med 08/07/18 23:45 Active IV ASDIRECTED Sodium Chloride 0.9% [Saline Flush] Med 08/07/18 20:40 Active 10 ml FLUSH ONETIME PRN Temazepam [Restoril] Med 08/07/18 23:56 Active 7.5 mg PO BEDTIME PRN guaiFENesin [Mucinex] Med 08/07/18 23:57 Active 600 mg PO Q12H PRN Blood Culture x2 Reflex Set [OM.PC] Stat Oth 08/07/18 21:26 Ordered Isolation [COMM] Routine Oth 08/07/18 23:45 Ordered Code Status [Resuscitation Status] Routine Resus Stat 08/07/18 23:57 Ordered Medication Orders Acetaminophen (Tylenol) 650 mg PO Q6H PRN PRN Reason: Pain/Fever Albuterol (Proventil Neb Soln) 2.5 mg NEB Q4HRRT PRN PRN Reason: Shortness of Breath Albuterol/Ipratropium (Duoneb 3.0-0.5 Mg/3 Ml) 3 ml NEB QID [facility] Benzonatate (Tessalon Perles) 100 mg PO TID PRN PRN Reason: Cough Enoxaparin Sodium (Lovenox) 40 mg SUBCUT DAILY [facility] Guaifenesin (Mucinex) 600 mg PO Q12H PRN PRN Reason: Cough Sodium Chloride (Normal Saline) 1,000 mls @ 125 mls/hr IV ASDIRECTED XOCHILT Last Admin: 08/08/18 06:19 Dose: 125 mls/hr Infusion: 08/08/18 06:19 Dose: 125 mls/hr Admin: 08/07/18 23:52 Dose: 125 mls/hr Azithromycin 500 mg/ Sodium (Chloride) 250 mls @ 250 mls/hr IV Q24H [facility] Last Admin: 08/08/18 00:44 Dose: 250 mls/hr Influenza Virus Vaccine (Fluzone Quad [id number] Syringe) 60 mcg IM .ONCE ONE Stop: 08/08/18 10:01 Nicotine (Habitrol) 21 mg TRDERM DAILY [facility] Nitroglycerin (Nitrostat) 0.4 mg SL Q5M PRN PRN Reason: Chest Pain Last Admin: 08/07/18 18:38 Dose: 0.4 mg Sodium Chloride (Saline Flush) 10 ml FLUSH ONETIME PRN PRN Reason: KEEP VEIN OPEN Last Admin: 08/07/18 20:58 Dose: 10 ml Temazepam (Restoril) 7.5 mg PO BEDTIME PRN PRN Reason: Insomnia Assessment/Plan Comment:: I/P: Acute: Mycoplasma PNA -Presented to ED with chest pain which has been ongoing for past few days -Noted low oxygen saturations in ED -CRX 08/07/17 in ED: Probable left basilar pneumonia and small left pleural effusion. Heart is slightly enlarged. -CTA 08/07/17 in ED: * 1.Small moderate size left-sided pleural effusion with parenchymal density with the left base raising the possibility of pneumonia. Groundglass appearance within the left upper lung adjacent to the major fissure possibly due to his additional pneumonia. Please correlate as patient has infectious symptoms. * 2. Mild right basilar atelectasis seen. * 3. Slightly prominent lymph node with the lateral AP window measuring 2.7 cm. This most likely isn't enlarged on previous inflammatory basis although follow-up CT recommended in 6 months which should include contrast. This follow -up study would occur in January,. * 4. No findings of pulmonary embolism. -Levaquin given in ED - Discontinue -WBC: 12.99-->11.27 -CRP: 0.5-->3.6 -Lactic acid: 0.7 -Blood cultures pending -O2 as needed -Consult RT -PRN and scheduled duonebs/albuterol -Guaifenesin PRN -IS/Acapella -Sputum culture ordered -Azithromycin 500mg Q24 -Tessalon Pearls PRN for cough -Strep pneumo and VRP pending -Negative influenza -Fluids as ordered -Ambulate Sore throat -Reports throat irritation for some time -Worsened by cough -No injection or exudate on exam -Cepacol lozenge PRN -Throat culture ordered Elevated D-Dimmer -D-dimmer 0.89 -CTA as above - Negative for PE -No further workup Chest pain -Reports chest pain radiating into jaw with numbness and tingling in 4th and 5th digit of left hand -Worse with palpitation, inspiration, and cough -Hx/o anxiety, HLD, -Likely 2/2 PNA as above -Nitroglycerine/ASA given in ED and by EMS -Troponins negative -12-lead EKG in ED: Sinus rhythm at 55 BPM, RSR in V1 and V2 normal variant, QT minimally prolonged, No acute ST changes -Lipid panel ordered -Continue to monitor Tobacco use disorder -Reports 1.5 ppd smoker -Cessation counseling -Nicotine patch Prominent lymph node -2.7 cm lymph node noted on CT as above -Thought by radiologist to be enlarged on previous inflammatory basis -Recommend follow-up CT with contrast in January, -Will require PCP to follow-up on Chronic: Recurrent PNA Recurrent bronchitis GERD Chronic Diarrhea Multiple Colon Polyps -> has appt. at [place] on 08/22/18 for this Arthritis TIA in 2012 Plan: Admit to floor on telemetry Home medications as ordered Routine AM labs Other orders as indicated above GI prophylaxis: Pepcid DVT/PE prophylaxis: Lovenox Obtain old records She is ambulatory so will hold off PT/OT for now Code status: Full code; PCP: None
[2018-08-08] MEDS ORDERED: Ondansetron 4 MG Tab.DIS PO PRN (07:20)
[2018-08-08] MEDS ORDERED: Ondansetron 4 MG/2 ML SDV IV PRN (07:20)
[2018-08-08] MEDS ORDERED: Polyethylene Glycol 3350 Powder 17 GM Packet PO PRN (07:20)
[2018-08-08] MEDS ORDERED: Docusate Sodium 100 MG Cap PO PRN (07:20)
[2018-08-08] MEDS ORDERED: Bisacodyl 5 MG Tab PO PRN (07:20)
[2018-08-08] MEDS ORDERED: hydrALAZINE 20 MG/ML SDV IVPUSH PRN (07:23)
[2018-08-08] MEDS ORDERED: Metoprolol Tartrate 5 MG/5 ML SDV IVPUSH PRN (07:23)
[2018-08-08] MEDS ORDERED: guaiFENesin/Dextromethorphan 100-10 MG/5 ML Soln 5 ML Cup PO PRN (07:35)
[2018-08-08] MEDS: Famotidine 20 MG Tab PO SCH ×2 (08:11→21:20)
[2018-08-08] MEDS: Nicotine 21 MG/24 Hr Patch TRDERM SCH (08:12)
[2018-08-08] MEDS: Enoxaparin 40 MG/0.4 ML Syringe SUBCUT SCH (08:15)
[2018-08-08] MEDS: Albuterol/Ipratropium 3.0-0.5 MG/3 ML Neb Soln NEB SCH ×4 (08:22→20:41)
[2018-08-08] MEDS: Benzocaine/Cetylpyridinium/Menthol Lozenge MUCMEM PRN ×2 (15:37→21:20)
[2018-08-09] MEDS: Benzocaine/Cetylpyridinium/Menthol Lozenge MUCMEM PRN ×2 (01:07→08:23)
[2018-08-09] MEDS: Sodium Chloride 0.9% 1,000 ML IV SCH (01:08)
[2018-08-09] MEDS: Azithromycin 500 MG in Sodium Chloride 0.9% 250 ML IV SCH ×2 (01:08→23:24)
[2018-08-09] MEDS: Albuterol/Ipratropium 3.0-0.5 MG/3 ML Neb Soln NEB SCH ×4 (06:38→20:01)
--- NOTE | 2018-08-09 07:04 | PCM.PN ---
- General Info Date of Service: 08/09/18 Admission Dx/Problem (Free Text): Admission Diagnosis/Problem Admission Diagnosis/Problem Pneumonia Subjective Update: In to see Amarilys. She is sitting up in bed. Clinically she looks very good today. Labs have improved. She is off of oxygen and her cough has improved. Her chest pain has improved greatly. No nursing or patient concerns. We discussed her bowel issues and it is ultimately decided that since she this has been ongoing and she is scheduled to see [facility] at the end of the month we will defer to them. Will discontinue fluids at completion of this IV bag. She was advised to ambulate more. Otherwise, continue current treatment plan. Functional Status: Reports: Pain Controlled, Tolerating Diet, Ambulating, Urinating, Incentive Spirometry, Other (acapella ). Denies: New Symptoms - Review of Systems General: Reports: No Symptoms. Denies: Fever, Weakness, Fatigue, Malaise, Chills HEENT: Reports: Sore Throat. Denies: Headaches, Sinus Congestion Pulmonary: Reports: Pleuritic Chest Pain (improved ), Cough (improved ), Sputum. Denies: Shortness of Breath, Wheezing Cardiovascular: Reports: No Symptoms. Denies: Palpitations, Dyspnea on Exertion , Edema, Lightheadedness Gastrointestinal: Reports: Decreased Appetite, Diarrhea (Chronic ). Denies: Abdominal Pain, Constipation, Difficulty Swallowing, Nausea, Vomiting Genitourinary: Reports: No Symptoms. Denies: Dysuria, Pain Musculoskeletal: Reports: No Symptoms Skin: Reports: No Symptoms Neurological: Reports: No Symptoms. Denies: Confusion, Numbness, Pre-Existing Deficit, Seizure, Tingling, Trouble Speaking, Difficulty Walking, Weakness, Gait Disturbance Psychiatric: Reports: No Symptoms - Patient Data Vitals - Most Recent: Last Vital Signs Temp 98.1 F 08/09/18 06:20 Pulse 77 08/09/18 06:20 Resp 18 08/09/18 06:20 BP 105/87 08/09/18 06:20 Pulse Ox 91 L 08/09/18 06:39 Weight - Most Recent: 134 lb I&O - Last 24 Hours: Intake & Output 08/08/18 08/09/18 08/09/18 22:59 06:59 14:59 Intake Total 1874 1925 Output Total 1400 800 Balance 474 1125 Lab Results Last 24 Hours: Laboratory Results - last 24 hr 08/07/18 08/09/18 Range/Units 23:50 06:13 WBC 8.97 (3.98-10.04) K/mm3 RBC 4.31 (3.98-5.22) M/mm3 Hgb 13.9 (11.2-15.7) gm/L Hct 42.0 (34.1-44.9) % MCV 97.4 H (79.4-94.8) fl MCH 32.3 H (25.6-32.2) pg MCHC 33.1 (32.2-35.5) g/dl RDW Std Deviation 49.1 H (36.4-46.3) fL Plt Count 242 (182-369) K/mm3 MPV 10.7 (9.4-12.3) fl Neut % (Auto) 60.1 (34.0-71.1) % Lymph % (Auto) 25.2 (19.3-51.7) % [place] % (Auto) 12.2 (4.7-12.5) % Eos % (Auto) 1.9 (0.7-5.8) Baso % (Auto) 0.4 (0.1-1.2) % Neut # (Auto) 5.39 (1.56-6.13) K/mm3 Lymph # (Auto) 2.26 (1.18-3.74) K/mm3 [place] # (Auto) 1.09 H (0.24-0.36) K/mm3 Eos # (Auto) 0.17 (0.04-0.36) K/mm3 Baso # (Auto) 0.04 (0.01-0.08) K/mm3 Adenovirus (PCR) Not detected (Not Detected) B. pertussis DNA (PCR) Not detected (Not Detected) B.parapertussis DNA PCR Not detected (Not Detected) C. pneumoniae DNA (PCR) Not detected (Not Detected) Coronavirus (PCR) Not detected (Not Detected) Human Metapneumovir PCR Not detected (Not Detected) Influenza A (RT-PCR) Not detected (Not Detected) Influenza B (RT-PCR) Not detected (Not Detected) M. pneumoniae (PCR) Not detected (Not Detected) Parainfluen 1,2,3,4 PCR Not detected (Not Detected) RSV (PCR) Not detected (Not Detected) Entero/Rhino (PCR) Not detected (Not Detected) Praveen Results Last 24 Hours: Microbiology 08/07/18 21:53 Aerobic Blood Culture - Preliminary Blood - Venous - Lab Draw NO GROWTH AFTER 1 DAY Anaerobic Blood Culture - Preliminary NO GROWTH AFTER 1 DAY 08/07/18 21:43 Aerobic Blood Culture - Preliminary Blood - Venous NO GROWTH AFTER 1 DAY Anaerobic Blood Culture - Preliminary NO GROWTH AFTER 1 DAY 08/07/18 23:23 Streptococcus pneumoniae Antigen (M - Final Urine 08/07/18 23:54 Influenza Type A Antigen Screen - Final Nasal, Unspecified NEGATIVE INFLUENZA A VIRUS AG Influenza Type B Antigen Screen - Final NEGATIVE INFLUENZA B VIRUS AG Med Orders - Current: Current Medications Acetaminophen (Tylenol) 650 mg PO Q6H PRN PRN Reason: Pain/Fever Albuterol (Proventil Neb Soln) 2.5 mg NEB Q4HRRT PRN PRN Reason: Shortness of Breath Albuterol/Ipratropium (Duoneb 3.0-0.5 Mg/3 Ml) 3 ml NEB QIDRT [facility] Last Admin: 08/09/18 06:38 Dose: 3 ml Benzocaine/Menthol (Cepacol Sore Throat) 1 lozenge MUCMEM Q2H PRN PRN Reason: Sore Throat Last Admin: 08/09/18 01:07 Dose: 1 lozenge Benzonatate (Tessalon Perles) 100 mg PO TID PRN PRN Reason: Cough Bisacodyl (Dulcolax) 5 mg PO DAILY PRN PRN Reason: Constipation Docusate Sodium (Colace) 100 mg PO BID PRN PRN Reason: Constipation Enoxaparin Sodium (Lovenox) 40 mg SUBCUT DAILY [facility] Last Admin: 08/08/18 08:15 Dose: 40 mg Famotidine (Pepcid) 20 mg PO BID [facility] Last Admin: 08/08/18 21:20 Dose: 20 mg Guaifenesin (Mucinex) 600 mg PO Q12H PRN PRN Reason: Cough Hydralazine HCl (Apresoline) 10 mg IVPUSH Q4H PRN PRN Reason: Hypertension Sodium Chloride (Normal Saline) 1,000 mls @ 125 mls/hr IV ASDIRECTED [facility] Last Admin: 08/09/18 01:08 Dose: 125 mls/hr Azithromycin 500 mg/ Sodium (Chloride) 250 mls @ 250 mls/hr IV Q24H [facility] Last Admin: 08/09/18 01:08 Dose: 250 mls/hr Metoprolol Tartrate (Lopressor) 5 mg IVPUSH Q4H PRN PRN Reason: Tachycardia Nicotine (Habitrol) 21 mg TRDERM DAILY [facility] Last Admin: 08/08/18 08:12 Dose: 21 mg Nitroglycerin (Nitrostat) 0.4 mg SL Q5M PRN PRN Reason: Chest Pain Last Admin: 08/07/18 18:38 Dose: 0.4 mg Ondansetron HCl (Zofran Odt) 4 mg PO Q6H PRN PRN Reason: nausea, able to take PO Ondansetron HCl (Zofran) 4 mg IV Q6H PRN PRN Reason: Nausea/Vomiting Polyethylene Glycol (Miralax) 17 gm PO DAILY PRN PRN Reason: Constipation Senna/Docusate Sodium (Senna Plus) 1 tab PO BID PRN PRN Reason: Constipation Sodium Chloride (Saline Flush) 10 ml FLUSH ONETIME PRN PRN Reason: KEEP VEIN OPEN Last Admin: 08/07/18 20:58 Dose: 10 ml Temazepam (Restoril) 7.5 mg PO BEDTIME PRN PRN Reason: Insomnia Discontinued Medications Albuterol/Ipratropium (Duoneb 3.0-0.5 Mg/3 Ml) 3 ml NEB QID [facility] Last Admin: 08/08/18 20:41 Dose: 3 ml Al Hydroxide/Mg Hydroxide 30 (ml/ Lidocaine HCl 15 ml) 0 ml PO ONETIME ONE Stop: 08/07/18 18:18 Last Admin: 08/07/18 18:27 Dose: 45 ml Fentanyl (Sublimaze) 50 mcg IVPUSH ONETIME ONE Stop: 08/07/18 18:18 Last Admin: 08/07/18 18:30 Dose: 50 mcg Guaifenesin/Phenylephrine HCl (Robitussin Dm) 10 ml PO Q4H PRN PRN Reason: Cough Sodium Chloride (Normal Saline) 1,000 mls @ 150 mls/hr IV ASDIRECTED [facility] Last Admin: 08/07/18 18:28 Dose: 150 mls/hr Sodium Chloride (Normal Saline) 100 mls @ 80 mls/hr IV ASDIRECTED [facility] Last Admin: 08/07/18 20:58 Dose: 80 mls/hr Levofloxacin/Dextrose 750 mg/ (Premix) 150 mls @ 100 mls/hr IV ONETIME ONE Stop: 08/07/18 22:58 Last Admin: 08/07/18 21:36 Dose: 100 mls/hr Sodium Chloride (Normal Saline) 1,000 mls @ 999 mls/hr IV ONETIME ONE Stop: 08/07/18 22:45 Last Admin: 08/07/18 23:25 Dose: Not Given Sodium Chloride (Normal Saline) 1,000 mls @ 150 mls/hr IV ASDIRECTED [facility] Influenza Virus Vaccine (Pharmacy To Dose - Influenza Vaccine) 1 each IM ONETIME ONE Stop: 08/07/18 23:09 Influenza Virus Vaccine (Fluzone Quad 6024-3245 Syringe) 60 mcg IM .ONCE ONE Stop: 08/08/18 10:01 Iopamidol (Isovue-370 (76%)) 100 ml IVPUSH ONETIME ONE Stop: 08/07/18 20:41 Last Admin: 08/07/18 20:58 Dose: 100 ml - Exam Quality Assessment: DVT Prophylaxis. No: Supplemental Oxygen General: Alert, Oriented, Cooperative, No Acute Distress HEENT: Pupils Equal, Pupils Reactive, EOMI, Mucous Membr. Moist/[place] Neck: Supple, Trachea Midline, No JVD Lungs: Clear to Auscultation, Normal Respiratory Effort, Decreased Breath Sounds Cardiovascular: Regular Rate, Regular Rhythm GI/Abdominal Exam: Normal Bowel Sounds, Soft, Non-Tender, No Distention, No Abnormal Bruit (Female) Exam: Deferred Back Exam: Normal Inspection, Full Range of Motion Extremities: Normal Inspection, Normal Range of Motion, Non-Tender, No Pedal Edema, Normal Capillary Refill Peripheral Pulses: 2+: Radial (L), Radial (R), Dorsalis Pedis (L), Dorsalis Pedis (R) Skin: Warm, Dry, Intact Neurological: No New Focal Deficit Psy/Mental Status: Alert, Normal Affect, Normal Mood - Problem List & Annotations (1) Mycoplasma pneumonia SNOMED Code(s): 35655841 Code(s): J15.7 - PNEUMONIA DUE TO MYCOPLASMA PNEUMONIAE Status: Acute Priority: High Current Visit: Yes Qualifiers: Laterality: left Lung location: unspecified part of lung Qualified Code(s ): J15.7 - Pneumonia due to Mycoplasma pneumoniae (2) Hypoxia SNOMED Code(s): 864311553 Code(s): R09.02 - HYPOXEMIA Status: Acute Priority: High Current Visit : Yes (3) Pleural effusion SNOMED Code(s): 73677609 Code(s): J90 - PLEURAL EFFUSION, NOT ELSEWHERE CLASSIFIED Status: Acute Priority: Medium Current Visit: Yes (4) Pneumonia SNOMED Code(s): 059257174 Code(s): J18.9 - PNEUMONIA, UNSPECIFIED ORGANISM Status: Acute Priority: High Current Visit: Yes Qualifiers: Pneumonia type: due to unspecified organism Laterality: left Lung location: unspecified part of lung Qualified Code(s): J18.9 - Pneumonia, unspecified organism (5) Elevated d-dimer SNOMED Code(s): 226529999 Code(s): R79.89 - OTHER SPECIFIED ABNORMAL FINDINGS OF BLOOD CHEMISTRY Status: Acute Priority: High Current Visit: Yes (6) Chest pain SNOMED Code(s): 07077986 Code(s): R07.9 - CHEST PAIN, UNSPECIFIED Status: Acute Priority: High Current Visit: Yes Qualifiers: Chest pain type: chest pain on breathing Qualified Code(s): R07.1 - Chest pain on breathing; R07.81 - Pleurodynia (7) Lymph node enlargement SNOMED Code(s): 82468802 Code(s): R59.9 - ENLARGED LYMPH NODES, UNSPECIFIED Status: Acute Priority : Medium Current Visit: Yes - Problem List Review Problem List Initiated/Reviewed/Updated: Yes - My Orders Last 24 Hours: My Active Orders 08/08/18 07:20 Height and Weight [RC] 0400 Intake and Output [RC] 0400,1600 Up With Assistance [RC] ASDIRECTED VTE/DVT Education [RC] DAILY Vital Signs [RC] Q4HR Consult to Spiritual Care [CONS] Routine Respiratory Care Assess and Treatment [CONS] Routine Bisacodyl [Dulcolax] 5 mg PO DAILY PRN Docusate Sodium [Colace] 100 mg PO BID PRN Docusate Sodium/Sennosides [Senna Plus] 1 tab PO BID PRN Ondansetron [Zofran ODT] 4 mg PO Q6H PRN Ondansetron [Zofran] 4 mg IV Q6H PRN Polyethylene Glycol 3350 [MiraLAX] 17 gm PO DAILY PRN 08/08/18 07:23 Acapella [RT Chest Physiotherapy] [RC] ASDIRECTED RT Incentive Spirometry [RC] ASDIRECTED Metoprolol Tartrate [Lopressor] 5 mg IVPUSH Q4H PRN hydrALAZINE [Apresoline] 10 mg IVPUSH Q4H PRN 08/08/18 09:00 Famotidine [Pepcid] 20 mg PO BID 08/08/18 09:11 Benzocaine/Cetylpyrd/Menthol [Cepacol Sore Throat] 1 lozenge MUCMEM Q2H PRN 08/08/18 09:13 Ambulate [RC] ASDIRECTED 08/08/18 16:15 CULTURE SPUTUM + SMEAR [RM] Routine 08/09/18 06:13 BASIC METABOLIC PANEL,BMP [CHEM] AM CRP [C-REACTIVE PROTEIN] [CHEM] AM LIPID PANEL [CHEM] Routine MAGNESIUM [CHEM] AM 08/09/18 06:30 CULTURE THROAT [RM] Routine 08/09/18 08:00 Chest 2V [CR] Routine 08/10/18 05:11 BASIC METABOLIC PANEL,BMP [CHEM] AM CBC WITH AUTO DIFF [HEME] AM CRP [C-REACTIVE PROTEIN] [CHEM] AM MAGNESIUM [CHEM] AM 08/11/18 05:11 BASIC METABOLIC PANEL,BMP [CHEM] AM CBC WITH AUTO DIFF [HEME] AM CRP [C-REACTIVE PROTEIN] [CHEM] AM MAGNESIUM [CHEM] AM 08/12/18 05:11 BASIC METABOLIC PANEL,BMP [CHEM] AM CBC WITH AUTO DIFF [HEME] AM CRP [C-REACTIVE PROTEIN] [CHEM] AM MAGNESIUM [CHEM] AM - Plan Plan:: I/P: Acute: Mycoplasma PNA, improving -Presented to ED with chest pain which has been ongoing for past few days -Noted low oxygen saturations in ED -CRX 08/07/17 in ED: Probable left basilar pneumonia and small left pleural effusion. Heart is slightly enlarged. -CTA 08/07/17 in ED: * 1.Small moderate size left-sided pleural effusion with parenchymal density with the left base raising the possibility of pneumonia. Groundglass appearance within the left upper lung adjacent to the major fissure possibly due to his additional pneumonia. Please correlate as patient has infectious symptoms. * 2. Mild right basilar atelectasis seen. * 3. Slightly prominent lymph node with the lateral AP window measuring 2.7 cm. This most likely isn't enlarged on previous inflammatory basis although follow-up CT recommended in 6 months which should include contrast. This follow -up study would occur in January,. * 4. No findings of pulmonary embolism. -Levaquin given in ED - Discontinue -WBC: 12.99-->11.27-->8.97 -CRP: 0.5-->3.6-->8.6 -Lactic acid: 0.7 -Blood cultures negative thus far -O2 as needed -> off O2 today -Consult RT -PRN and scheduled duonebs/albuterol -Guaifenesin PRN -IS/Acapella -Sputum culture ordered -Azithromycin 500mg Q24 -Tessalon Pearls PRN for cough -Strep pneumo and VRP negative -Negative influenza -Fluids as ordered -> discontinue today -Ambulate TID -Droplet Isolation Sore throat, improving -Reports throat irritation for some time -Worsened by cough -No injection or exudate on exam -Cepacol lozenge PRN -Throat culture ordered Chest wall pain, improved -Reports chest pain radiating into jaw with numbness and tingling in 4th and 5th digit of left hand -Worse with palpitation, inspiration, and cough -Hx/o anxiety, HLD -Likely 2/2 PNA as above (coughing) -Nitroglycerine/ASA given in ED and by EMS -Troponins negative -12-lead EKG in ED: Sinus rhythm at 55 BPM, RSR in V1 and V2 normal variant, QT minimally prolonged, No acute ST changes -Lipid panel: Triglycerides 44, total cholesterol 100, LDL 56, HDL 43 -Continue to monitor -TSH 2.368 and free T4 1.17 (both WNL) Tobacco use disorder -Reports 1.5 ppd smoker -Cessation counseling -Nicotine patch Prominent lymph node -2.7 cm lymph node noted on CT as above -Thought by radiologist to be enlarged on previous inflammatory basis -Recommend follow-up CT with contrast in January, -Will require PCP to follow-up on Inactive: Elevated D-Dimmer -D-dimmer 0.89 -CTA as above - Negative for PE -No further workup Chronic: Recurrent PNA Recurrent bronchitis GERD Chronic Diarrhea Multiple Colon Polyps -> has appt. at [place] on 08/22/18 for this Arthritis TIA in 2012 Plan: Admit to floor on telemetry Home medications as ordered Routine AM labs Other orders as indicated above GI prophylaxis: Pepcid DVT/PE prophylaxis: Lovenox Obtain old records She is ambulatory so will hold off PT/OT for now Code status: Full code; PCP: Mara Tripp NP
[2018-08-09] MEDS: Nicotine 21 MG/24 Hr Patch TRDERM SCH (08:18)
[2018-08-09] MEDS: Famotidine 20 MG Tab PO SCH ×2 (08:22→21:19)
[2018-08-09] MEDS: Enoxaparin 40 MG/0.4 ML Syringe SUBCUT SCH (08:22)
--- NOTE | 2018-08-09 10:11 | CR ---
Chest: Two views of the chest were obtained. Comparison: Previous chest x-ray of 08/07/[address] chest of 08/07/18. Small to moderate size left-sided pleural effusion is seen causing mild left basilar compressive atelectasis. Lungs otherwise are clear. Heart size does not appear enlarged. Upper mediastinum is within normal limits. Bony structures are unremarkable. Impression: 1. Left-sided pleural effusion similar to previous CT chest. Mild left basilar atelectasis likely on a compressive basis is seen. 2. Other portions of the two-view chest x-ray are unremarkable. Diagnostic code #3
[2018-08-09] MEDS: Saccharomyces Boulardii (Probiotic) 250 MG Cap PO SCH (21:19)
[2018-08-10] MEDS: Albuterol/Ipratropium 3.0-0.5 MG/3 ML Neb Soln NEB SCH ×2 (05:30→10:01)
--- NOTE | 2018-08-10 07:05 | PCM.DCSUM1 ---
Discharge Summary - Hospital Course HPI Initial Comments: Amarilys Cabrales is a 52yo female who presented to ED yesterday evening with lateral chest pain that radiates into her jaw along with faint numbness and tingling in her fourth and fifth finger of her left hand. She reports it started on 08/06/18 when she woke up and continued throughout the day on and off. On 08/07/18 at approximately 1500 hrs. the pain came back when she was sitting at her desk and was quite severe in nature. She called her boyfriend about who brought her to the [facility] and she was transported to our emergency room. She had taken two 325 mg ASA tabs around 4:30 and received 4 mg of morphine, 4 mg Zofran, and 1 after glycerin spray with some relief enroute. No prior history of similar pain. In the ED she reported her jaw pain to be 4 out of 10. Reports she has been under a lot of stress with health issues, family situation, and work. She is a daily smoker of 1.5 packs per day and rarely uses alcohol. Denies recreational drug use. She reportedly had a prior TIA in 2012. No history of coronary artery disease, hypertension, hypercholesterolemia, and diabetes. No first-degree relatives with heart disease. Denies any fever, chills, abdominal pain, nausea, vomiting, diaphoresis, pain to her back, dysuria, bloody stool, pain or swelling in her lower extremities. No history of DVT or PE. No history of cancer. She reportedly has an abnormal colon polyps and has continued to lose weight and is excessively fatigued. She is scheduled to see a provider at [facility] near the end of August. In the ED temp was 97.2. Pulse 60. Respirations 20. Blood pressure 105/76. Pulse ox 95%. 30 mL slightly elevated at 12.99. Hemoglobin 15.2. Hematocrit 44.7. She is macrocytic. Pulses are good at 274,000. Neutrophils were elevated at 72%. There is no bandemia. D-dimer 0.89. Sodium is 139. Potassium 4.1. Chloride 105. Carbon dioxide 26. Anion gap 12.1. BUN is 11. Creatinine 0.6. EGFR greater than 60. Glucose 108. Calcium 8.2. Total bilirubin 0.2. AST is 14, ALT 14, alkaline phosphatase 70. Troponin is negative at less than 0.017 for 3 total lab draws. CRP is 0.5. Protein is 6.7. Albumin is 3.3. Free T4 is 1.17. TSH is 2.368. PT is 10. INR is less than 0.93. APTT is 29. She is given a GI cocktail and nitroglycerin and 50 g IV fentanyl. Twelve-lead EKG is obtained showing a rate of 55 bpm. RSR is noted in V1 and V2 normal variant. QT is minimally prolonged. No acute ST changes are noted. Chest x-ray is obtained and interpreted by Dr. Hale as 1. Probable left basilar pneumonia and small left pleural effusion. 2. Slightly enlarged heart." CTA of the chest is obtained and interpreted by Dr. Hale as 1. Small to moderate size left-sided pleural effusion with parenchymal density within the left base raising the possibility of pneumonia. Groundglass appearance of the left upper lung adjacent to the major fissure possibly due to additional pneumonia. Please correlate if patient has infectious symptoms. 2. Mild right basilar atelectasis seen. 3. Slightly prominent lymph node within the lateral AP window measuring 2.7 cm. This most likely is enlarged on previous inflammatory basis although follow-up chest CT recommended in 6 months which should include contrast. This follow-up study would occur in January 2019. 4. No findings of pulmonary embolism." Lactic acid is later obtained and found to be 0.7. UA is negative although trace lysed occult blood is noted. Levaquin 750 mg IV is initiated along with saline hospitalist services contacted for possible admission and it is recommended patient be transferred to [facility]. Both [facility] and [facility] contacted and neither has bed availability. Patient will therefore be admitted here. She carries a history of TIA in 2012, anxiety, depression prior LEEP, GERD, recurrent PNA, recurrent bronchitis, multiple colon polyps, chronic diarrhea. She is a 1.5 pack a day daily smoker. She is a full code. She does not have a PCP. Diagnosis: Stroke: No - Discharge Data Discharge Date: 08/10/18 (Admit date: 08/07/18) Discharge Disposition: Home, Self-Care 01 Condition: Good - Discharge Diagnosis/Problem(s) (1) Mycoplasma pneumonia SNOMED Code(s): 22809154 ICD Code: J15.7 - PNEUMONIA DUE TO MYCOPLASMA PNEUMONIAE Status: Acute Priority: High Current Visit: Yes Qualifiers: Laterality: left Lung location: unspecified part of lung Qualified Code(s ): J15.7 - Pneumonia due to Mycoplasma pneumoniae (2) Hypoxia SNOMED Code(s): 342247307 ICD Code: R09.02 - HYPOXEMIA Status: Acute Priority: High Current Visit : Yes (3) Pleural effusion SNOMED Code(s): 15686765 ICD Code: J90 - PLEURAL EFFUSION, NOT ELSEWHERE CLASSIFIED Status: Resolved Priority: Medium Current Visit: Yes (4) Pneumonia SNOMED Code(s): 620663899 ICD Code: J18.9 - PNEUMONIA, UNSPECIFIED ORGANISM Status: Acute Priority : High Current Visit: Yes Qualifiers: Pneumonia type: due to Mycoplasma pneumoniae Laterality: left Lung location: unspecified part of lung Qualified Code(s): J15.7 - Pneumonia due to Mycoplasma pneumoniae (5) Elevated d-dimer SNOMED Code(s): 885991478 ICD Code: R79.89 - OTHER SPECIFIED ABNORMAL FINDINGS OF BLOOD CHEMISTRY Status: Acute Priority: High Current Visit: Yes (6) Chest pain SNOMED Code(s): 00612993 ICD Code: R07.9 - CHEST PAIN, UNSPECIFIED Status: Acute Priority: High Current Visit: Yes Qualifiers: Chest pain type: chest pain on breathing Qualified Code(s): R07.1 - Chest pain on breathing; R07.81 - Pleurodynia (7) Lymph node enlargement SNOMED Code(s): 43093312 ICD Code: R59.9 - ENLARGED LYMPH NODES, UNSPECIFIED Status: Acute Priority: Medium Current Visit: Yes - Patient Summary/Data Consults: Consultations 08/08/18 07:20 Consult to Spiritual Care [CONS] Routine Respiratory Care Assess and Treatment [CONS] Routine Labs Pending at D/C: Throat culture - preliminary from lab reports normal precious Recommended Follow-up Testing/Procedures: Follow-up with PCP within 7-10 days, sooner if needed. Follow-up with [facility] as scheduled Hospital Course: I/P: Acute: Mycoplasma PNA, improving -Presented to ED with chest pain which has been ongoing for past few days -Noted low oxygen saturations in ED -CRX 08/07/17 in ED: Probable left basilar pneumonia and small left pleural effusion. Heart is slightly enlarged. -CTA 1/7/18 in ED: * 1.Small moderate size left-sided pleural effusion with parenchymal density with the left base raising the possibility of pneumonia. Groundglass appearance within the left upper lung adjacent to the major fissure possibly due to his additional pneumonia. Please correlate as patient has infectious symptoms. * 2. Mild right basilar atelectasis seen. * 3. Slightly prominent lymph node with the lateral AP window measuring 2.7 cm. This most likely isn't enlarged on previous inflammatory basis although follow-up CT recommended in 6 months which should include contrast. This follow -up study would occur in January,. * 4. No findings of pulmonary embolism. -Levaquin given in ED - Discontinue -WBC: 12.99-->11.27-->8.97-->8.84 -CRP: 0.5-->3.6-->8.6-->4.8 -Lactic acid: 0.7 -Blood cultures negative thus far -O2 as needed -> off O2 yesterday -Consult RT -PRN and scheduled duonebs/albuterol -Guaifenesin PRN -IS/Acapella -Sputum culture ordered - preliminary shows normal precious -Azithromycin 500mg Q24 -Tessalon Pearls PRN for cough -Strep pneumo and VRP negative -Negative influenza -Fluids as ordered -> discontinue today -Ambulate TID -Droplet Isolation Sore throat, improving -Reports throat irritation for some time -Worsened by cough -No injection or exudate on exam -Cepacol lozenge PRN -Throat culture ordered Chest wall pain, improved -Reports chest pain radiating into jaw with numbness and tingling in 4th and 5th digit of left hand -Worse with palpitation, inspiration, and cough -Hx/o anxiety, HLD -Likely 2/2 PNA as above (coughing) -Nitroglycerine/ASA given in ED and by EMS -Troponins negative -12-lead EKG in ED: Sinus rhythm at 55 BPM, RSR in V1 and V2 normal variant, QT minimally prolonged, No acute ST changes -Lipid panel: Triglycerides 44, total cholesterol 100, LDL 56, HDL 43 -Continue to monitor -TSH 2.368 and free T4 1.17 (both WNL) Tobacco use disorder -Reports 1.5 ppd smoker -Cessation counseling -Nicotine patch Prominent lymph node -2.7 cm lymph node noted on CT as above -Thought by radiologist to be enlarged on previous inflammatory basis -Recommend follow-up CT with contrast in January, -Will require PCP to follow-up on Inactive: Elevated D-Dimmer -D-dimmer 0.89 -CTA as above - Negative for PE -No further workup Chronic: Recurrent PNA Recurrent bronchitis GERD Chronic Diarrhea Multiple Colon Polyps -> has appt. at [facility] on 08/22/18 for this Arthritis TIA in 2012 Plan: Admit to floor on telemetry Home medications as ordered Routine AM labs Other orders as indicated above GI prophylaxis: Pepcid DVT/PE prophylaxis: Lovenox Obtain old records She is ambulatory so will hold off PT/OT for now Code status: Full code; PCP: Mara Tripp NP Overall Amarilys did very well. She came into our ED with chest pain. Cardiac workup was negative and she was found to be positive for mycoplasma and had a cough. She was also hypoxic and required oxygen, which was rapidly weaned off with treatment. She was started on azithromycin and responded very well. She was utilizing IS and acapella and instructed to continue this until all symptoms resolve. She is a smoker and received a nicotine patch while here. She liked the patches we have an took a picture of the box and patch as she liked how well ours stuck to her. She has been attempting to quit for sometime and she should be followed by her PCP for this. D-dimer was elevated in the ED and CTA was obtained as above with no signs of PE. Chest wall pain improved as her cough improved. She received duonebs while here and will be discharged on a PRN albuterol inhaler. She was given 2 more days of 500mg azithromycin tablets daily. She had been receiving her antibiotic around midnight and will be instructed to take this at bedtime starting tonight (08/10/18). She had been receiving tessalon pearls and will be discharged with a PRN order for this. Labs all trended down and she has been ambulating without shortness of breath or difficulty. Sputum culture was negative and preliminary throat culture showed normal precious. We offered to further explore her chronic diarrhea and colon issues however she refused and reports an appointment for this on 08/22/18 at [facility]. She was encouraged to be sure she attends this appointment. She did have a prominent lymph node as above and a repeat CT was recommended in January of 2019. She should follow-up with her PCP for this. She was instructed to follow-up with her PCP within 7-10 days, sooner if needed and [facility] as scheduled prior. - Patient Instructions Diet: Regular Diet as Tolerated Activity: As Tolerated Showering/Bathing: May Shower Notify Provider of: Fever, Increased Pain, Nausea and/or Vomiting Other/Special Instructions: -Follow-up with PCP within 7-10 days of discharge, sooner if needed. -Take all of your antibiotic, even if your feel 100% better. -Continut to utilize your incentive spirometry (clear/blue device your inahle through) and acapella (green tube you blow through) until all sympomts resolve. -You were curious about or nicotine patches. They are made by [employer]. You took pictures of the box and the patch itself. -You were prescribed an inhaler. Take this as needed as directed. -We discussed your abdominal sympotms and you indicated that you did not want further workup here as you are going to [facility] for this issue. Make sure you attend that appointment. -Should symptoms return or worsen, contact PCP or return to the ED - Discharge Plan *PRESCRIPTION DRUG MONITORING PROGRAM REVIEWED*: No *COPY OF PRESCRIPTION DRUG MONITORING REPORT IN PATIENT CYNTHIA: No Prescriptions/Med Rec: Albuterol [Ventolin HFA] 8 gm IH TID PRN 10 Days #1 inhaler PRN Reason: Wheezing/Shortness of breath Azithromycin 500 mg PO BEDTIME #2 tablet Benzonatate [Tessalon Perle] 100 mg PO BID PRN #20 capsule PRN Reason: Cough Nicotine [Habitrol] 21 mg TRDERM DAILY #2 box Saccharomyces Boulardii [Florastor] 250 mg PO BID #20 cap Home Medications: Home Meds [facility] Multivitamin Packet 1 packet PO DAILY 08/07/18 [History] Potassium 1 tab PO DAILY 08/07/18 [History] Albuterol [Ventolin HFA] 8 gm IH TID PRN 10 Days #1 inhaler 08/10/18 [Rx] Azithromycin 500 mg PO BEDTIME #2 tablet 08/10/18 [Rx] Benzonatate [Tessalon Perle] 100 mg PO BID PRN #20 capsule 08/10/18 [Rx] Nicotine [Habitrol] 21 mg TRDERM DAILY #2 box 08/10/18 [Rx] Saccharomyces Olu [Florastor] 250 mg PO BID #20 cap 08/10/18 [Rx] Oxygen Therapy Mode: Room Air Patient Handouts: Chest Wall Pain, [id number], Community-Acquired Pneumonia, Adult, [id number] Forms: ED Department Discharge Referrals: Mara Tripp [employer] [Ordering Only Provider] - 08/14/18 11:30 am (please attend the scheduled follow up appointment as listed.) - Discharge Summary/Plan Comment DC Time >30 min.: No - General Info Date of Service: 08/10/18 Admission Dx/Problem (Free Text: Admission Diagnosis/Problem Admission Diagnosis/Problem Pneumonia Subjective Update: In to see Amarilys. She is sitting up in bed and reports she feels very good. We discussed her smoking status and she indicated she would like nicotine patches. These will be prescribed. She reports her SOB is gone. Clinically she looks good and labs show continued improvement. She will be discharged today. Functional Status: Reports: Pain Controlled, Tolerating Diet, Ambulating, Urinating, Incentive Spirometry, Other (acapella ). Denies: New Symptoms - Review of Systems General: Reports: No Symptoms. Denies: Fever, Weakness, Fatigue, Malaise, Chills HEENT: Reports: No Symptoms, Sore Throat (improving ). Denies: Headaches, Sinus Congestion Pulmonary: Reports: Pleuritic Chest Pain (improving ), Cough (improving ), Sputum (improving ). Denies: Shortness of Breath, Wheezing Cardiovascular: Reports: No Symptoms. Denies: Palpitations, Dyspnea on Exertion , Edema, Lightheadedness Gastrointestinal: Reports: Decreased Appetite, Diarrhea (chronic ). Denies: Abdominal Pain, Constipation, Difficulty Swallowing, Nausea, Vomiting Genitourinary: Reports: No Symptoms. Denies: Pain Musculoskeletal: Reports: No Symptoms Skin: Reports: No Symptoms. Denies: Cyanosis Neurological: Reports: No Symptoms. Denies: Confusion, Headache, Numbness, Pre- Existing Deficit, Tingling, Trouble Speaking, Difficulty Walking, Weakness, Gait Disturbance Psychiatric: Reports: No Symptoms - Patient Data Vitals - Most Recent: Last Vital Signs Temp 98.1 F 08/09/18 23:28 Pulse 62 08/09/18 23:28 Resp 16 08/09/18 23:28 BP 107/61 08/09/18 23:28 Pulse Ox 92 L 08/10/18 05:33 Weight - Most Recent: 134 lb 1.6 oz I&O - Last 24 hours: Intake & Output 08/09/18 08/10/18 08/10/18 22:59 06:59 14:59 Intake Total 2330 1050 Output Total 300 800 Balance 2030 250 Lab Results - Last 24 hrs: Laboratory Results - last 24 hr 08/09/18 08/10/18 Range/Units 06:13 05:55 WBC 8.84 (3.98-10.04) K/mm3 RBC 4.57 (3.98-5.22) M/mm3 Hgb 15.0 (11.2-15.7) gm/L Hct 44.3 (34.1-44.9) % MCV 96.9 H (79.4-94.8) fl MCH 32.8 H (25.6-32.2) pg MCHC 33.9 (32.2-35.5) g/dl RDW Std Deviation 48.9 H (36.4-46.3) fL Plt Count 256 (182-369) K/mm3 MPV 10.4 (9.4-12.3) fl Neut % (Auto) 60.1 (34.0-71.1) % Lymph % (Auto) 26.6 (19.3-51.7) % [place] % (Auto) 10.2 (4.7-12.5) % Eos % (Auto) 2.4 (0.7-5.8) Baso % (Auto) 0.5 (0.1-1.2) % Neut # (Auto) 5.32 (1.56-6.13) K/mm3 Lymph # (Auto) 2.35 (1.18-3.74) K/mm3 [place] # (Auto) 0.90 H (0.24-0.36) K/mm3 Eos # (Auto) 0.21 (0.04-0.36) K/mm3 Baso # (Auto) 0.04 (0.01-0.08) K/mm3 Sodium 143 (136-145) mEq/L Potassium 3.9 (3.5-5.1) mEq/L Chloride 111 H (98-107) mEq/L Carbon Dioxide 25 (21-32) mEq/L Anion Gap 10.9 (5-15) BUN 9 (7-18) mg/dL Creatinine 0.5 L (0.55-1.02) mg/dL Est Cr Clr Drug Dosing 127.73 mL/min Estimated GFR (MDRD) > 60 (>60) mL/min BUN/Creatinine Ratio 18.0 (14-18) Glucose 89 (74-106) mg/dL Calcium 8.0 L (8.5-10.1) mg/dL Magnesium 2.0 (1.8-2.4) mg/dl C-Reactive Protein 8.6 H* (<1.0) mg/dL Triglycerides 44 (<150) mg/dL Cholesterol 100 (<200) mg/dL LDL Cholesterol Direct 56 (<100) mg/dL HDL Cholesterol 43.0 (40-59) mg/dL HARRISON Results - Last 24 hrs: Microbiology 08/07/18 21:53 Aerobic Blood Culture - Preliminary Blood - Venous - Lab Draw NO GROWTH AFTER 2 DAYS Anaerobic Blood Culture - Preliminary NO GROWTH AFTER 2 DAYS 08/07/18 21:43 Aerobic Blood Culture - Preliminary Blood - Venous NO GROWTH AFTER 2 DAYS Anaerobic Blood Culture - Preliminary NO GROWTH AFTER 2 DAYS 08/08/18 16:15 Gram Stain - Final Sputum - Expectorated Med Orders - Current: Current Medications Acetaminophen (Tylenol) 650 mg PO Q6H PRN PRN Reason: Pain/Fever Albuterol (Proventil Neb Soln) 2.5 mg NEB Q4HRRT PRN PRN Reason: Shortness of Breath Albuterol/Ipratropium (Duoneb 3.0-0.5 Mg/3 Ml) 3 ml NEB QIDRT XOCHILT Last Admin: 08/10/18 05:30 Dose: 3 ml Benzocaine/Menthol (Cepacol Sore Throat) 1 lozenge MUCMEM Q2H PRN PRN Reason: Sore Throat Last Admin: 08/09/18 08:23 Dose: 1 lozenge Benzonatate (Tessalon Perles) 100 mg PO TID PRN PRN Reason: Cough Last Admin: 08/09/18 09:01 Dose: 100 mg Bisacodyl (Dulcolax) 5 mg PO DAILY PRN PRN Reason: Constipation Docusate Sodium (Colace) 100 mg PO BID PRN PRN Reason: Constipation Enoxaparin Sodium (Lovenox) 40 mg SUBCUT DAILY [facility] Last Admin: 08/09/18 08:22 Dose: 40 mg Famotidine (Pepcid) 20 mg PO BID [facility] Last Admin: 08/09/18 21:19 Dose: 20 mg Guaifenesin (Mucinex) 600 mg PO Q12H PRN PRN Reason: Cough Last Admin: 08/09/18 09:01 Dose: 600 mg Hydralazine HCl (Apresoline) 10 mg IVPUSH Q4H PRN PRN Reason: Hypertension Azithromycin 500 mg/ Sodium (Chloride) 250 mls @ 250 mls/hr IV Q24H [facility] Last Admin: 08/09/18 23:24 Dose: 250 mls/hr Magnesium Sulfate (Pharmacy To Dose - Magnesium Replacement) 0 dose .XX ASDIRECTED PRN PRN Reason: RX TO WATCH MAG LEVELS Metoprolol Tartrate (Lopressor) 5 mg IVPUSH Q4H PRN PRN Reason: Tachycardia Nicotine (Habitrol) 21 mg TRDERM DAILY [facility] Last Admin: 08/09/18 08:18 Dose: 21 mg Nitroglycerin (Nitrostat) 0.4 mg SL Q5M PRN PRN Reason: Chest Pain Last Admin: 08/07/18 18:38 Dose: 0.4 mg Ondansetron HCl (Zofran Odt) 4 mg PO Q6H PRN PRN Reason: nausea, able to take PO Ondansetron HCl (Zofran) 4 mg IV Q6H PRN PRN Reason: Nausea/Vomiting Polyethylene Glycol (Miralax) 17 gm PO DAILY PRN PRN Reason: Constipation Potassium Chloride (Pharmacy To Dose - Potassium Replacement) 0 dose .XX ASDIRECTED PRN PRN Reason: RX TO WATCH K LEVELS Saccharomyces Boulardii (Florastor) 250 mg PO BID [facility] Last Admin: 08/09/18 21:19 Dose: 250 mg Senna/Docusate Sodium (Senna Plus) 1 tab PO BID PRN PRN Reason: Constipation Sodium Chloride (Saline Flush) 10 ml FLUSH ONETIME PRN PRN Reason: KEEP VEIN OPEN Last Admin: 08/07/18 20:58 Dose: 10 ml Temazepam (Restoril) 7.5 mg PO BEDTIME PRN PRN Reason: Insomnia Discontinued Medications Albuterol/Ipratropium (Duoneb 3.0-0.5 Mg/3 Ml) 3 ml NEB QID [facility] Last Admin: 08/08/18 20:41 Dose: 3 ml Al Hydroxide/Mg Hydroxide 30 (ml/ Lidocaine HCl 15 ml) 0 ml PO ONETIME ONE Stop: 08/07/18 18:18 Last Admin: 08/07/18 18:27 Dose: 45 ml Fentanyl (Sublimaze) 50 mcg IVPUSH ONETIME ONE Stop: 08/07/18 18:18 Last Admin: 08/07/18 18:30 Dose: 50 mcg Guaifenesin/Phenylephrine HCl (Robitussin Dm) 10 ml PO Q4H PRN PRN Reason: Cough Sodium Chloride (Normal Saline) 1,000 mls @ 150 mls/hr IV ASDIRECTED [facility] Last Admin: 08/07/18 18:28 Dose: 150 mls/hr Sodium Chloride (Normal Saline) 100 mls @ 80 mls/hr IV ASDIRECTED [facility] Last Admin: 08/07/18 20:58 Dose: 80 mls/hr Levofloxacin/Dextrose 750 mg/ (Premix) 150 mls @ 100 mls/hr IV ONETIME ONE Stop: 08/07/18 22:58 Last Admin: 08/07/18 21:36 Dose: 100 mls/hr Sodium Chloride (Normal Saline) 1,000 mls @ 999 mls/hr IV ONETIME ONE Stop: 08/07/18 22:45 Last Admin: 08/07/18 23:25 Dose: Not Given Sodium Chloride (Normal Saline) 1,000 mls @ 150 mls/hr IV ASDIRECTED [facility] Sodium Chloride (Normal Saline) 1,000 mls @ 125 mls/hr IV ASDIRECTED [facility] Last Admin: 08/09/18 01:08 Dose: 125 mls/hr Influenza Virus Vaccine (Pharmacy To Dose - Influenza Vaccine) 1 each IM ONETIME ONE Stop: 08/07/18 23:09 Influenza Virus Vaccine (Fluzone Quad [id number] Syringe) 60 mcg IM .ONCE ONE Stop: 08/08/18 10:01 Iopamidol (Isovue-370 (76%)) 100 ml IVPUSH ONETIME ONE Stop: 08/07/18 20:41 Last Admin: 08/07/18 20:58 Dose: 100 ml - Exam Quality Assessment: Reports: DVT Prophylaxis General: Reports: Alert, Oriented, Cooperative, No Acute Distress HEENT: Reports: Pupils Equal, Pupils Reactive, EOMI, Mucous Membr. Moist/[place] Neck: Reports: Supple, Trachea Midline, No JVD Lungs: Reports: Clear to Auscultation, Normal Respiratory Effort Cardiovascular: Reports: Regular Rate, Regular Rhythm GI/Abdominal Exam: Normal Bowel Sounds, Soft, Non-Tender, No Distention, No Abnormal Bruit (Female) Exam: Deferred Rectal (Female) Exam: Deferred Back Exam: Reports: Normal Inspection, Full Range of Motion Extremities: Normal Inspection, Normal Range of Motion, Non-Tender, No Pedal Edema, Normal Capillary Refill Skin: Reports: Warm, Dry, Intact Neurological: Reports: No New Focal Deficit Psy/Mental Status: Reports: Alert, Normal Affect, Normal Mood
[2018-08-10] MEDS: Nicotine 21 MG/24 Hr Patch TRDERM SCH (08:52)
[2018-08-10] MEDS: Enoxaparin 40 MG/0.4 ML Syringe SUBCUT SCH (08:54)
[2018-08-10] MEDS: Famotidine 20 MG Tab PO SCH (08:55)
[2018-08-10] MEDS: Saccharomyces Boulardii (Probiotic) 250 MG Cap PO SCH (08:55)
== END 2018-08-10 11:45 | disposition home or self-care (01) | DRG 139 ==
LOC: JD.ED 17:53 → JD.MS 22:26
PROVIDERS: ADMIT Internal Medicine Cardiovascular Disease; ATTEND Internal Medicine Cardiovascular Disease
DX: J15.7 Pneumonia due to Mycoplasma pneumoniae (principal); J90 Pleural effusion, not elsewhere classified; F17.200 Nicotine dependence, unspecified, uncomplicated; Z86.73 Personal history of transient ischemic attack (TIA), and cerebral infarction without residual deficits; R09.02 Hypoxemia; R79.89 Other specified abnormal findings of blood chemistry; F41.9 Anxiety disorder, unspecified; E78.5 Hyperlipidemia, unspecified; R59.1 Generalized enlarged lymph nodes; K21.9 Gastro-esophageal reflux disease without esophagitis; R19.7 Diarrhea, unspecified; K63.5 Polyp of colon; M19.90 Unspecified osteoarthritis, unspecified site; Z79.899 Other long term (current) drug therapy; F32.9 Major depressive disorder, single episode, unspecified; Z87.01 Personal history of pneumonia (recurrent); R59.0 Localized enlarged lymph nodes
CPT/HCPCS: 36415; 71045; 71045-26; 71046; 71046-26; 71275; 71275-26; 80048; 80053; 80061; 81001; 83605; 83735; 83880; 84439; 84443; 84484; 85007; 85025; 85027; 85379; 85610; 85730; 86140; 86738; 87040; 87070; 87205; 87486; 87581; 87632; 87798; 87804; 87899; 90686; 93005; 93010; 94640; 94667; 94668; 94761; 96361; 96365; 96375; 99285; 99285-25; A9270-GY; G0008; J0456; J1650; J1956; J3010; J7030; J7040; J7050; J7620-GY; Q9967